=== PATIENT | male | born 1940 | race African-American/Black ===

== ENCOUNTER 2017-07-20 11:38 | Inpatient (IN) | payer MEDICARE, BC ==
[~2017-07-20] VITALS: Ht 171.4 cm; Wt 79.8 kg
[~2017-07-20 11:38] MED LIST: AMLO10TA80 PO; GLIPIZIDE PO; METF500T4 PO; METO-385 PO; VALS320T15 PO
[2017-07-20 15:27] LABS: BG BASE EXCESS 0.5 mmol/L (-2.0-2.0); BG CARBOXYHEMOGLOBIN 0.6 % (0.5-1.5); BG DEOXYHEMOGLOBIN 13.8 % (0.0-5.0); BG FRACTION INSPIRED OXYGEN 28; BG HCO3 ACT 24.1 mmol/L (22.0-26.0); BG METHEMOGLOBIN 0.3 % (0.0-1.5); BG OXYGEN SATURATION 86.1 % (92.0-98.5); BG OXYHEMOGLOBIN 85.3 % (94.0-97.0); BG PCO2 35.5 mmHg (35.0-45.0); BG PO2 52.1 mmHg (75.0-100.0); BG SAMPLE SITE RIGHT FEMORAL; BG TOTAL HEMOGLOBIN 12.8 g/dL (12.0-18.0); BG VENT MODE NASAL CANNULA
[2017-07-20 15:33] LABS: HEMATOCRIT. 36.9 % (42.0-52.0); HEMOGLOBIN. 12.2 g/dL (14.0-18.0); MEAN CORPUSCULAR HEMOGLOBIN 29.4 pg (28.0-32.0); MEAN PLATELET VOLUME 8.1 fl (7.4-10.4); PLATELET 331 x1000/uL (130-400); RED BLOOD CELL COUNT 4.15 mill/uL (4.7-6.1); RED CELL DISTRIBUTION WIDTH 15.6 % (11.6-14.6)
[2017-07-20 15:43] LABS: CHLORIDE 108 mEq/L (98-107)
[2017-07-20] MEDS ORDERED: LEVOFLOXACIN 750MG PREMIX 150 ML IV ONE (16:00)
[2017-07-20 16:08] LABS: INR 1.1; PROTHROMBIN TIME 11.1 sec (9.4-11.6)
[2017-07-20] MEDS ORDERED: SODIUM CHLORIDE 0.9% 1,000 ML IV ONE (16:49)
[2017-07-20 17:30] LABS: PLATELET ESTIMATE NORMAL
[2017-07-20 18:39] VITALS: BP 155/100
[2017-07-20] MEDS ORDERED: INFLUENZA VIRUS VACCINE 0.5ML SYR IM ONE (18:39)
[2017-07-20] MEDS ORDERED: PNEUMOCOCCAL 23-VAL P-SAC VAC 0.5 ML IM ONE (18:39)
[2017-07-20 18:47] VITALS: BP 155/100
[2017-07-20] MEDS ORDERED: NEBI20TA2 PO (18:50)
[2017-07-20] MEDS ORDERED: DOCUSATE SODIUM 100MG CAPSULE PO PRN (19:00)
[2017-07-20] MEDS ORDERED: ONDANSETRON HCL 4MG/2ML VIAL IV PRN (19:00)
[2017-07-20] MEDS ORDERED: GUAIFENESIN 200MG/10ML SUGAR FREE UDC PO PRN (19:00)
[2017-07-20] MEDS ORDERED: MORPHINE SULFATE 4 MG/ML CPJ (NOT FOR IM USE) IV PRN (19:00)
[2017-07-20] MEDS ORDERED: ACETAMINOPHEN 325MG TABLET PO PRN (19:00)
[2017-07-20 20:00] VITALS: BP 91/69
[2017-07-20] MEDS ORDERED: DEXTROSE 50% WATER 50ML SYRINGE IV PRN (20:00)
[2017-07-20] MEDS ORDERED: PIPERACILLIN/TAZ 3.375G PREMIX 50 ML IV SCH (20:00)
[2017-07-20] MEDS: FUROSEMIDE 40MG/4ML VIAL IV SCH (20:45)
[2017-07-20] MEDS: METOPROLOL TARTRATE 25MG TABLET PO SCH (20:46)
[2017-07-20] MEDS: ENOXAPARIN 40MG/0.4ML SYR SUBCUT SCH (20:47)
[2017-07-20] MEDS: BLOOD SUGAR DIAGNOSTIC STRIP TEST SCH (20:50)
[2017-07-20] MEDS: INSULIN LISPRO 100 UNITS/ML SUBCUT SCH (21:21)
[2017-07-20 22:00] VITALS: BP 120/100
[2017-07-20] MEDS: CLONIDINE 0.1MG TABLET PO PRN (22:10)
[2017-07-20] MEDS: PIPERACILLIN/TAZ 3.375G PREMIX 50 ML IV SCH (23:54)
[2017-07-21] VITALS (15 sets, daily range): BP systolic 131–177; BP diastolic 77–105
[2017-07-21 00:13] LABS: CREATINE KINASE MB FRACTION 1.7 ng/mL (0.5-3.6)
[2017-07-21] MEDS: PIPERACILLIN/TAZ 3.375G PREMIX 50 ML IV SCH ×3 (05:34→21:16)
[2017-07-21 06:36] LABS: BASOPHILS % 0.3 % (0.0-2.0); EOSINOPHILS % 0.4 % (0.0-5.0); HEMATOCRIT. 34.7 % (42.0-52.0); HEMOGLOBIN. 11.4 g/dL (14.0-18.0); LYMPHOCYTES % 7.2 % (20.0-50.0); MEAN CORPUSCULAR HEMOGLOBIN 29.2 pg (28.0-32.0); MEAN CORPUSCULAR VOLUME 89.2 fL (80.0-94.0); MEAN PLATELET VOLUME 7.5 fl (7.4-10.4); MONOCYTES % 11.2 % (2.0-8.0); NEUTROPHILS % 80.9 % (40.0-76.0); PLATELET 291 x1000/uL (130-400); RED BLOOD CELL COUNT 3.89 mill/uL (4.7-6.1); RED CELL DISTRIBUTION WIDTH 15.6 % (11.6-14.6)
[2017-07-21 07:17] LABS: CHLORIDE 108 mEq/L (98-107)
[2017-07-21 07:24] LABS: CREATINE KINASE 129 IU/L (39-308); CREATINE KINASE MB FRACTION 1.7 ng/mL (0.5-3.6); HDL CHOLESTEROL 45 mg/dL (40-59); LDL CHOLESTEROL 81 mg/dL (5-100)
[2017-07-21] MEDS: BLOOD SUGAR DIAGNOSTIC STRIP TEST SCH ×4 (07:30→20:30)
[2017-07-21] MEDS: INSULIN LISPRO 100 UNITS/ML SUBCUT SCH ×4 (07:50→20:40)
[2017-07-21] MEDS: ASPIRIN 81MG EC TABLET PO SCH (09:03)
[2017-07-21] MEDS: FUROSEMIDE 40MG/4ML VIAL IV SCH (09:03)
[2017-07-21] MEDS: AMLODIPINE 10MG TABLET PO SCH (09:03)
[2017-07-21] MEDS: METOPROLOL TARTRATE 25MG TABLET PO SCH ×2 (09:18→20:32)
[2017-07-21 15:07] LABS: BG BASE EXCESS 0.3 mmol/L (-2.0-2.0); BG HCO3 ACT 24.6 mmol/L (22.0-26.0); BG METHEMOGLOBIN 0.1 % (0.0-1.5); BG OXYHEMOGLOBIN 88.9 % (94.0-97.0); BG PCO2 38.3 mmHg (35.0-45.0); BG PH 7.425 (7.350-7.450); BG PO2 58.8 mmHg (75.0-100.0); BG SAMPLE SITE RIGHT RADIAL; BG TOTAL HEMOGLOBIN 11.8 g/dL (12.0-18.0); BG VENT MODE MASK - VENTI
[2017-07-21] MEDS: IPRATROPIUM/ALBUTEROL 0.5-3(2.5)MG/3ML NEB HHN SCH ×2 (15:18→20:10)
[2017-07-21] MEDS: GUAIFENESIN 600MG ER TABLET PO SCH (20:32)
[2017-07-21] MEDS: ENOXAPARIN 40MG/0.4ML SYR SUBCUT SCH (20:33)
[2017-07-22] VITALS (12 sets, daily range): BP systolic 92–169; BP diastolic 47–102
[2017-07-22] MEDS: IPRATROPIUM/ALBUTEROL 0.5-3(2.5)MG/3ML NEB HHN SCH ×6 (01:00→20:50)
[2017-07-22] MEDS: PIPERACILLIN/TAZ 3.375G PREMIX 50 ML IV SCH ×3 (05:16→21:45)
[2017-07-22] MEDS: BLOOD SUGAR DIAGNOSTIC STRIP TEST SCH ×4 (07:30→21:18)
[2017-07-22 08:19] LABS: HEMOGLOBIN. 10.5 g/dL (14.0-18.0); MEAN CORPUSCULAR HEMOGLOBIN 29.3 pg (28.0-32.0); MEAN CORPUSCULAR VOLUME 88.9 fL (80.0-94.0); MEAN PLATELET VOLUME 7.6 fl (7.4-10.4); PLATELET 287 x1000/uL (130-400); RED CELL DISTRIBUTION WIDTH 15.5 % (11.6-14.6)
[2017-07-22 08:22] LABS: CHLORIDE 106 mEq/L (98-107)
[2017-07-22] MEDS: GUAIFENESIN 600MG ER TABLET PO SCH (09:06)
[2017-07-22] MEDS: FUROSEMIDE 40MG/4ML VIAL IV SCH (09:06)
[2017-07-22] MEDS: METOPROLOL TARTRATE 25MG TABLET PO SCH ×2 (09:07→21:45)
[2017-07-22] MEDS: AMLODIPINE 10MG TABLET PO SCH (09:07)
[2017-07-22] MEDS: ASPIRIN 81MG EC TABLET PO SCH (09:07)
[2017-07-22] MEDS: INSULIN LISPRO 100 UNITS/ML SUBCUT SCH ×4 (09:13→21:42)
[2017-07-22] MEDS ORDERED: POTASSIUM CHLORIDE 20MEQ TABLET SR PO SCH (12:00)
[2017-07-22 12:13] LABS: PLATELET ESTIMATE NORMAL
[2017-07-22] MEDS ORDERED: REGADENOSON 0.4 MG/5 ML IV ONE (12:45)
[2017-07-22] MEDS: ACETYLCYSTEINE 100MG/ML 10% VIAL 4ML INH SCH (15:17)
[2017-07-22] MEDS: ENOXAPARIN 40MG/0.4ML SYR SUBCUT SCH (21:43)
[2017-07-22] MEDS: CLONIDINE 0.1MG TABLET PO PRN (22:26)
[2017-07-23] VITALS (12 sets, daily range): BP systolic 139–181; BP diastolic 59–101
[2017-07-23] MEDS: ACETYLCYSTEINE 100MG/ML 10% VIAL 4ML INH SCH ×3 (00:43→17:19)
[2017-07-23] MEDS: IPRATROPIUM/ALBUTEROL 0.5-3(2.5)MG/3ML NEB HHN SCH ×6 (00:43→21:23)
[2017-07-23] MEDS: PIPERACILLIN/TAZ 3.375G PREMIX 50 ML IV SCH ×3 (05:49→21:47)
[2017-07-23 06:11] LABS: CHLORIDE 107 mEq/L (98-107)
[2017-07-23] MEDS: CLONIDINE 0.1MG TABLET PO PRN (06:47)
[2017-07-23] MEDS: BLOOD SUGAR DIAGNOSTIC STRIP TEST SCH ×4 (06:47→21:48)
[2017-07-23] MEDS: FUROSEMIDE 40MG/4ML VIAL IV SCH (08:14)
[2017-07-23] MEDS: ASPIRIN 81MG EC TABLET PO SCH (08:15)
[2017-07-23] MEDS: METOPROLOL TARTRATE 25MG TABLET PO SCH ×2 (08:15→21:47)
[2017-07-23] MEDS: AMLODIPINE 10MG TABLET PO SCH (08:15)
[2017-07-23] MEDS: INSULIN LISPRO 100 UNITS/ML SUBCUT SCH ×4 (08:16→21:57)
[2017-07-23] MEDS ORDERED: POTASSIUM CHLORIDE 20MEQ TABLET SR PO NR (08:30)
[2017-07-23] MEDS ORDERED: REGADENOSON 0.4 MG/5 ML IV ONE (14:00)
[2017-07-23] MEDS: ENOXAPARIN 40MG/0.4ML SYR SUBCUT SCH (21:46)
[2017-07-24] VITALS (11 sets, daily range): BP systolic 146–175; BP diastolic 64–98
[2017-07-24] MEDS: IPRATROPIUM/ALBUTEROL 0.5-3(2.5)MG/3ML NEB HHN SCH ×7 (00:48→20:18)
[2017-07-24] MEDS: ACETYLCYSTEINE 100MG/ML 10% VIAL 4ML INH SCH ×3 (00:49→09:10)
[2017-07-24] MEDS: PIPERACILLIN/TAZ 3.375G PREMIX 50 ML IV SCH ×3 (05:33→21:06)
[2017-07-24 07:21] LABS: HEMATOCRIT. 31.6 % (42.0-52.0); HEMOGLOBIN. 10.2 g/dL (14.0-18.0); MEAN CORPUSCULAR HEMOGLOBIN 28.8 pg (28.0-32.0); MEAN CORPUSCULAR VOLUME 89.1 fL (80.0-94.0); MEAN PLATELET VOLUME 7.3 fl (7.4-10.4); PLATELET 327 x1000/uL (130-400); RED BLOOD CELL COUNT 3.55 mill/uL (4.7-6.1); RED CELL DISTRIBUTION WIDTH 15.4 % (11.6-14.6)
[2017-07-24] MEDS: BLOOD SUGAR DIAGNOSTIC STRIP TEST SCH ×4 (07:30→21:06)
[2017-07-24 07:39] LABS: CHLORIDE 106 mEq/L (98-107)
[2017-07-24] MEDS: FUROSEMIDE 40MG/4ML VIAL IV SCH (08:47)
[2017-07-24] MEDS: METOPROLOL TARTRATE 25MG TABLET PO SCH ×2 (08:47→21:06)
[2017-07-24] MEDS: ASPIRIN 81MG EC TABLET PO SCH (08:49)
[2017-07-24] MEDS: AMLODIPINE 10MG TABLET PO SCH (08:49)
[2017-07-24] MEDS: POTASSIUM CHLORIDE 20MEQ TABLET SR PO SCH (08:49)
[2017-07-24] MEDS: INSULIN LISPRO 100 UNITS/ML SUBCUT SCH ×4 (08:53→21:00)
[2017-07-24] MEDS ORDERED: REGADENOSON 0.4 MG/5 ML IV ONE (12:19)
[2017-07-24] MEDS ORDERED: LOSARTAN POTASSIUM 50 MG TABLET PO SCH (13:15)
[2017-07-24 13:49] LABS: PLATELET ESTIMATE NORMAL
[2017-07-24] MEDS ORDERED: VERAPAMIL HCL 2.5 MG/1 ML 2ML VIAL IV NR (14:15)
[2017-07-24] MEDS: TAMSULOSIN HCL 0.4MG SR CAPSULE PO SCH ×2 (14:19→16:51)
[2017-07-24] MEDS: ENOXAPARIN 80MG/0.8ML SYR SUBCUT SCH (16:31)
[2017-07-24] MEDS: DILTIAZEM HCL 60MG TABLET PO SCH (16:31)
[2017-07-24] MEDS ORDERED: TAMSULOSIN HCL 0.4MG SR CAPSULE PO NR (16:45)
[2017-07-24] MEDS ORDERED: AMLODIPINE 5MG TABLET PO SCH (21:00)
[2017-07-24] MEDS: LOSARTAN POTASSIUM 50 MG TABLET PO SCH (21:06)
[2017-07-25] VITALS (12 sets, daily range): BP systolic 143–161; BP diastolic 68–86
[2017-07-25] MEDS: ACETYLCYSTEINE 100MG/ML 10% VIAL 4ML INH SCH ×4 (00:04→12:54)
[2017-07-25] MEDS: IPRATROPIUM/ALBUTEROL 0.5-3(2.5)MG/3ML NEB HHN SCH ×4 (00:04→12:54)
[2017-07-25] MEDS: DILTIAZEM HCL 60MG TABLET PO SCH ×3 (02:07→18:20)
[2017-07-25] MEDS: ENOXAPARIN 80MG/0.8ML SYR SUBCUT SCH ×2 (05:24→18:16)
[2017-07-25] MEDS: PIPERACILLIN/TAZ 3.375G PREMIX 50 ML IV SCH ×3 (05:24→21:16)
[2017-07-25] MEDS: BLOOD SUGAR DIAGNOSTIC STRIP TEST SCH ×4 (07:52→21:16)
[2017-07-25 07:57] LABS: HEMATOCRIT. 29.2 % (42.0-52.0); HEMOGLOBIN. 9.7 g/dL (14.0-18.0); MEAN CORPUSCULAR HEMOGLOBIN 29.5 pg (28.0-32.0); MEAN CORPUSCULAR VOLUME 88.7 fL (80.0-94.0); MEAN PLATELET VOLUME 7.4 fl (7.4-10.4); PLATELET 333 x1000/uL (130-400); RED BLOOD CELL COUNT 3.29 mill/uL (4.7-6.1); RED CELL DISTRIBUTION WIDTH 15.2 % (11.6-14.6)
[2017-07-25] MEDS: METOPROLOL TARTRATE 25MG TABLET PO SCH ×2 (08:15→21:16)
[2017-07-25] MEDS: LOSARTAN POTASSIUM 50 MG TABLET PO SCH ×2 (08:15→21:16)
[2017-07-25] MEDS: ASPIRIN 81MG EC TABLET PO SCH (08:15)
[2017-07-25] MEDS: FUROSEMIDE 40MG/4ML VIAL IV SCH (08:15)
[2017-07-25] MEDS: POTASSIUM CHLORIDE 20MEQ TABLET SR PO SCH (08:16)
[2017-07-25] MEDS: TAMSULOSIN HCL 0.4MG SR CAPSULE PO SCH (08:16)
[2017-07-25] MEDS: INSULIN LISPRO 100 UNITS/ML SUBCUT SCH ×4 (08:17→21:22)
[2017-07-25 09:26] LABS: PLATELET ESTIMATE NORMAL
[2017-07-25] MEDS ORDERED: POTASSIUM CHLORIDE 20MEQ TABLET SR PO SCH (14:00)
[2017-07-25] MEDS: IPRATROPIUM/ALBUTEROL 0.5-3(2.5)MG/3ML NEB HHN PRN (16:02)
[2017-07-26] VITALS (12 sets, daily range): BP systolic 122–169; BP diastolic 76–94
[2017-07-26] MEDS: IPRATROPIUM/ALBUTEROL 0.5-3(2.5)MG/3ML NEB HHN PRN ×4 (00:19→23:42)
[2017-07-26] MEDS: DILTIAZEM HCL 60MG TABLET PO SCH (02:11)
[2017-07-26] MEDS: ENOXAPARIN 80MG/0.8ML SYR SUBCUT SCH ×2 (05:44→18:00)
[2017-07-26] MEDS: PIPERACILLIN/TAZ 3.375G PREMIX 50 ML IV SCH ×3 (05:44→21:07)
[2017-07-26] MEDS: BLOOD SUGAR DIAGNOSTIC STRIP TEST SCH ×4 (07:30→21:04)
[2017-07-26 07:36] LABS: HEMATOCRIT. 30.8 % (42.0-52.0); HEMOGLOBIN. 10.2 g/dL (14.0-18.0); MEAN CORPUSCULAR HEMOGLOBIN 29.3 pg (28.0-32.0); MEAN CORPUSCULAR VOLUME 88.4 fL (80.0-94.0); MEAN PLATELET VOLUME 7.1 fl (7.4-10.4); PLATELET 384 x1000/uL (130-400); RED BLOOD CELL COUNT 3.49 mill/uL (4.7-6.1); RED CELL DISTRIBUTION WIDTH 15.5 % (11.6-14.6)
[2017-07-26] MEDS: INSULIN LISPRO 100 UNITS/ML SUBCUT SCH ×4 (08:00→21:07)
[2017-07-26] MEDS: ACETYLCYSTEINE 100MG/ML 10% VIAL 4ML INH SCH ×3 (08:15→23:42)
[2017-07-26 08:44] LABS: CHLORIDE 111 mEq/L (98-107)
[2017-07-26] MEDS: FUROSEMIDE 40MG/4ML VIAL IV SCH (09:58)
[2017-07-26] MEDS: POTASSIUM CHLORIDE 20MEQ TABLET SR PO SCH (09:58)
[2017-07-26] MEDS: METOPROLOL TARTRATE 25MG TABLET PO SCH ×2 (09:59→21:07)
[2017-07-26] MEDS: TAMSULOSIN HCL 0.4MG SR CAPSULE PO SCH (09:59)
[2017-07-26] MEDS: LOSARTAN POTASSIUM 50 MG TABLET PO SCH ×2 (09:59→21:09)
[2017-07-26] MEDS: ASPIRIN 81MG EC TABLET PO SCH (10:00)
[2017-07-26] MEDS: DILTIAZEM HCL 90MG TABLET PO SCH ×2 (14:48→22:42)
[2017-07-26 20:23] LABS: PLATELET ESTIMATE NORMAL
[2017-07-27] VITALS (12 sets, daily range): BP systolic 133–168; BP diastolic 44–85
[2017-07-27 06:02] LABS: HEMATOCRIT. 27.4 % (42.0-52.0); HEMOGLOBIN. 9.3 g/dL (14.0-18.0); MEAN CORPUSCULAR HEMOGLOBIN 29.9 pg (28.0-32.0); MEAN CORPUSCULAR VOLUME 88.4 fL (80.0-94.0); PLATELET 341 x1000/uL (130-400); RED CELL DISTRIBUTION WIDTH 15.5 % (11.6-14.6)
[2017-07-27] MEDS: DILTIAZEM HCL 90MG TABLET PO SCH ×3 (06:35→21:24)
[2017-07-27] MEDS: PIPERACILLIN/TAZ 3.375G PREMIX 50 ML IV SCH ×3 (06:35→21:23)
[2017-07-27] MEDS: INSULIN LISPRO 100 UNITS/ML SUBCUT SCH ×4 (08:00→21:36)
[2017-07-27] MEDS: IPRATROPIUM/ALBUTEROL 0.5-3(2.5)MG/3ML NEB HHN PRN ×2 (08:01→15:12)
[2017-07-27] MEDS: ACETYLCYSTEINE 100MG/ML 10% VIAL 4ML INH SCH ×2 (08:01→15:12)
[2017-07-27] MEDS: BLOOD SUGAR DIAGNOSTIC STRIP TEST SCH ×4 (08:13→21:51)
[2017-07-27 09:26] LABS: PLATELET ESTIMATE NORMAL
[2017-07-27] MEDS: POTASSIUM CHLORIDE 20MEQ TABLET SR PO SCH (10:20)
[2017-07-27] MEDS: METOPROLOL TARTRATE 25MG TABLET PO SCH ×2 (10:21→21:24)
[2017-07-27] MEDS: TAMSULOSIN HCL 0.4MG SR CAPSULE PO SCH (10:21)
[2017-07-27] MEDS: LOSARTAN POTASSIUM 50 MG TABLET PO SCH ×2 (10:21→21:23)
[2017-07-27] MEDS: FUROSEMIDE 40MG/4ML VIAL IV SCH (10:22)
[2017-07-27] MEDS: ASPIRIN 81MG EC TABLET PO SCH (10:22)
[2017-07-28] VITALS (23 sets, daily range): BP systolic 131–187; BP diastolic 58–106
[2017-07-28] MEDS: DILTIAZEM HCL 90MG TABLET PO SCH ×3 (06:09→22:25)
[2017-07-28 07:38] LABS: HEMATOCRIT. 29.8 % (42.0-52.0); HEMOGLOBIN. 9.8 g/dL (14.0-18.0); MEAN CORPUSCULAR HEMOGLOBIN 28.9 pg (28.0-32.0); MEAN CORPUSCULAR VOLUME 88.4 fL (80.0-94.0); MEAN PLATELET VOLUME 7.1 fl (7.4-10.4); PLATELET 398 x1000/uL (130-400); RED BLOOD CELL COUNT 3.38 mill/uL (4.7-6.1); RED CELL DISTRIBUTION WIDTH 15.2 % (11.6-14.6)
[2017-07-28] MEDS: BLOOD SUGAR DIAGNOSTIC STRIP TEST SCH ×4 (07:53→21:00)
[2017-07-28] MEDS: INSULIN LISPRO 100 UNITS/ML SUBCUT SCH ×4 (08:22→22:23)
[2017-07-28] MEDS: POTASSIUM CHLORIDE 20MEQ TABLET SR PO SCH (08:22)
[2017-07-28] MEDS: FUROSEMIDE 40MG/4ML VIAL IV SCH (08:22)
[2017-07-28] MEDS: ASPIRIN 81MG EC TABLET PO SCH (08:22)
[2017-07-28] MEDS: LOSARTAN POTASSIUM 50 MG TABLET PO SCH ×2 (08:22→22:11)
[2017-07-28] MEDS: TAMSULOSIN HCL 0.4MG SR CAPSULE PO SCH (08:22)
[2017-07-28] MEDS: METOPROLOL TARTRATE 25MG TABLET PO SCH ×2 (08:23→22:10)
[2017-07-28 18:05] LABS: PLATELET ESTIMATE NORMAL
[2017-07-29] VITALS (8 sets, daily range): BP systolic 132–174; BP diastolic 67–83
[2017-07-29] MEDS: DILTIAZEM HCL 90MG TABLET PO SCH ×2 (06:36→13:01)
[2017-07-29] MEDS: CLONIDINE 0.1MG TABLET PO PRN (06:40)
[2017-07-29] MEDS: BLOOD SUGAR DIAGNOSTIC STRIP TEST SCH ×3 (07:03→17:28)
[2017-07-29] MEDS: INSULIN LISPRO 100 UNITS/ML SUBCUT SCH ×3 (07:57→17:28)
[2017-07-29] MEDS: FUROSEMIDE 40MG/4ML VIAL IV SCH (08:31)
[2017-07-29] MEDS: ASPIRIN 81MG EC TABLET PO SCH (08:31)
[2017-07-29] MEDS: METOPROLOL TARTRATE 25MG TABLET PO SCH (08:31)
[2017-07-29] MEDS: POTASSIUM CHLORIDE 20MEQ TABLET SR PO SCH (08:31)
[2017-07-29] MEDS: LOSARTAN POTASSIUM 50 MG TABLET PO SCH (08:31)
[2017-07-29] MEDS: TAMSULOSIN HCL 0.4MG SR CAPSULE PO SCH (08:32)
== END 2017-07-29 20:30 | disposition home or self-care (01) | DRG 871 ==
LOC: ER 12:00 → 5EST 16:03 → EDBEDREQ 16:05 → ENRESERV 16:13
PROVIDERS: ADMIT Hospitalist; ATTEND Hospitalist
PROC: 5A09357 Assistance with Respiratory Ventilation, Less than 24 Consecutive Hours, Continuous Positive Airway Pressure (ICD-10-PCS; principal; 2017-07-20)
PROC: 5A09357 Assistance with Respiratory Ventilation, Less than 24 Consecutive Hours, Continuous Positive Airway Pressure (ICD-10-PCS; 2017-07-22)
DX: A41.9 Sepsis, unspecified organism (principal); I50.23 Acute on chronic systolic (congestive) heart failure; J96.01 Acute respiratory failure with hypoxia; I21.4 Non-ST elevation (NSTEMI) myocardial infarction; J18.9 Pneumonia, unspecified organism; N17.9 Acute kidney failure, unspecified; I48.0 Paroxysmal atrial fibrillation; I11.0 Hypertensive heart disease with heart failure; D64.9 Anemia, unspecified; E11.9 Type 2 diabetes mellitus without complications; E87.1 Hypo-osmolality and hyponatremia; I48.92 Unspecified atrial flutter; N40.1 Benign prostatic hyperplasia with lower urinary tract symptoms; R31.9 Hematuria, unspecified; R33.8 Other retention of urine; I34.0 Nonrheumatic mitral (valve) insufficiency; E87.6 Hypokalemia; F03.90 Unspecified dementia, unspecified severity, without behavioral disturbance, psychotic disturbance, mood disturbance, and anxiety; Z87.891 Personal history of nicotine dependence; Z93.4 Other artificial openings of gastrointestinal tract status; Z79.899 Other long term (current) drug therapy; Z79.84 Long term (current) use of oral hypoglycemic drugs
CPT/HCPCS: 36415; 36600; 71045; 71275; 78452; 80048; 80053; 80061; 82375; 82550; 82553; 82805; 82962; 83735; 83880; 84443; 84484; 85025; 85379; 85610; 93005; 93017; 93306; 93970; 94640; 94660; 97116; 97162; A9500; J1650; J1815; J1940; J1956; J2543; J2785; J3490; J7030; J7050; J7608; J7620; A4315

== ENCOUNTER 2017-08-06 10:45 | Inpatient (IN) | payer MEDICARE, BC ==
[~2017-08-06] VITALS: Ht 170.2 cm; Wt 75.3 kg
[~2017-08-06 10:45] MED LIST changes: +NEBI20TA2 PO
[2017-08-06 11:21] LABS: BG BASE EXCESS -4.7 mmol/L (-2.0-2.0); BG CARBOXYHEMOGLOBIN 0.1 % (0.5-1.5); BG DEOXYHEMOGLOBIN 12.8 % (0.0-5.0); BG FRACTION INSPIRED OXYGEN 100; BG HCO3 ACT 21.4 mmol/L (22.0-26.0); BG METHEMOGLOBIN 0.1 % (0.0-1.5); BG OXYGEN SATURATION 87.2 % (92.0-98.5); BG PCO2 43.7 mmHg (35.0-45.0); BG PH 7.308 (7.350-7.450); BG SAMPLE SITE RIGHT BRACHIAL; BG TOTAL HEMOGLOBIN 11.5 g/dL (12.0-18.0); BG VENT MODE MASK - NRB
[2017-08-06 11:36] LABS: HEMATOCRIT. 31.5 % (42.0-52.0); HEMOGLOBIN. 10.5 g/dL (14.0-18.0); MEAN CORPUSCULAR HEMOGLOBIN 29.5 pg (28.0-32.0); MEAN CORPUSCULAR VOLUME 88.7 fL (80.0-94.0); MEAN PLATELET VOLUME 6.8 fl (7.4-10.4); PLATELET 550 x1000/uL (130-400); RED BLOOD CELL COUNT 3.56 mill/uL (4.7-6.1); RED CELL DISTRIBUTION WIDTH 15.9 % (11.6-14.6)
[2017-08-06 11:43] LABS: INR 1.1
[2017-08-06 11:47] LABS: CHLORIDE 105 mEq/L (98-107)
[2017-08-06] MEDS ORDERED: ASPIRIN 81MG TABLET PO ONE (12:15)
[2017-08-06] MEDS ORDERED: FUROSEMIDE 40MG/4ML VIAL IV ONE (12:15)
[2017-08-06] MEDS ORDERED: NITROGLYCERIN 0.4MG TABLET SL SL PRN (12:15)
[2017-08-06] MEDS ORDERED: NITROGLYCERIN OINT 1GM/INCH UDPKT TD ONE (12:15)
[2017-08-06 12:19] LABS: PLATELET ESTIMATE INCREASED
[2017-08-06] MEDS ORDERED: IPRATROPIUM/ALBUTEROL 0.5-3(2.5)MG/3ML NEB HHN PRN (13:30)
[2017-08-06] MEDS ORDERED: IPRATROPIUM/ALBUTEROL 0.5-3(2.5)MG/3ML NEB INH PRN (13:45)
[2017-08-06] MEDS ORDERED: MORPHINE SULFATE 2 MG/ML CPJ (NOT FOR IM USE) IV PRN (13:45)
[2017-08-06] MEDS ORDERED: ONDANSETRON HCL 4MG/2ML VIAL IV PRN (13:45)
[2017-08-06] MEDS: FUROSEMIDE 40MG/4ML VIAL IV SCH (13:45)
[2017-08-06] MEDS ORDERED: LEVOFLOXACIN 750MG PREMIX 150 ML IV SCH (13:45)
[2017-08-06] MEDS ORDERED: HYDROCODONE/ACETAMINOPHEN 5/325MG TABLET PO PRN (13:45)
[2017-08-06] MEDS: IPRATROPIUM/ALBUTEROL 0.5-3(2.5)MG/3ML NEB HHN SCH ×2 (15:22→20:38)
[2017-08-06] MEDS ORDERED: CLONIDINE 0.2MG TABLET PO PRN (15:45)
[2017-08-06 16:00] VITALS: BP 137/85
[2017-08-06] MEDS ORDERED: DEXTROSE 50% WATER 50ML SYRINGE IV PRN (16:45)
[2017-08-06] MEDS: BLOOD SUGAR DIAGNOSTIC STRIP TEST SCH ×2 (17:20→21:25)
[2017-08-06 18:00] VITALS: BP 127/66
[2017-08-06] MEDS: PIPERACILLIN/TAZ 3.375G PREMIX 50 ML IV SCH ×2 (18:30→23:38)
[2017-08-06] MEDS: ENOXAPARIN 40MG/0.4ML SYR SUBCUT SCH (18:31)
[2017-08-06] MEDS: TAMSULOSIN HCL 0.4MG SR CAPSULE PO SCH (18:32)
[2017-08-06] MEDS: FUROSEMIDE 40MG/4ML VIAL IVP SCH (18:34)
[2017-08-06] MEDS: INSULIN LISPRO 100 UNITS/ML SUBCUT SCH ×2 (18:34→21:00)
[2017-08-06 20:00] VITALS: BP 126/63
[2017-08-06 22:00] VITALS: BP 153/74
[2017-08-06 23:32] LABS: CLARITY URINE CLOUDY (CLEAR); COLOR URINE YELLOW (YELLOW); KETONES URINE NEGATIVE (NEGATIVE); LEUKOCYTE ESTERASE URINE 2+ (NEGATIVE); NITRITE URINE NEGATIVE (NEGATIVE); OCCULT BLOOD URINE TRACE (NEGATIVE); PROTEIN URINE 1+ (NEGATIVE); SPECIFIC GRAVITY URINE 1.015 (1.005-1.030); UROBILINOGEN URINE 0.2 E.U./dL (0.2-1.0)
[2017-08-06 23:52] LABS: *AMPHETAMINES SCREEN URINE NEGATIVE (NEGATIVE); *BARBITURATES SCREEN URINE NEGATIVE (NEGATIVE); *BENZODIAZEPINES SCREEN URINE NEGATIVE (NEGATIVE); *COCAINE SCREEN URINE NEGATIVE (NEGATIVE); CANNABINOID URINE SCREEN NEGATIVE (NEGATIVE); METHADONE URINE SCREEN NEGATIVE (NEGATIVE); OPIATES URINE SCREEN NEGATIVE (NEGATIVE); PHENCYCLIDINE URINE SCREEN NEGATIVE (NEGATIVE)
[2017-08-07] VITALS (14 sets, daily range): BP systolic 129–154; BP diastolic 56–93
[2017-08-07] MEDS: IPRATROPIUM/ALBUTEROL 0.5-3(2.5)MG/3ML NEB HHN SCH ×7 (00:20→19:59)
[2017-08-07 07:14] LABS: HEMATOCRIT. 27.6 % (42.0-52.0); MEAN CORPUSCULAR HEMOGLOBIN 28.8 pg (28.0-32.0); MEAN CORPUSCULAR VOLUME 88.3 fL (80.0-94.0); MEAN PLATELET VOLUME 6.8 fl (7.4-10.4); PLATELET 403 x1000/uL (130-400); RED BLOOD CELL COUNT 3.13 mill/uL (4.7-6.1); RED CELL DISTRIBUTION WIDTH 16.3 % (11.6-14.6)
[2017-08-07] MEDS: INSULIN LISPRO 100 UNITS/ML SUBCUT SCH ×4 (07:27→21:12)
[2017-08-07] MEDS: BLOOD SUGAR DIAGNOSTIC STRIP TEST SCH ×4 (07:27→21:12)
[2017-08-07 07:41] LABS: CHLORIDE 108 mEq/L (98-107)
[2017-08-07 07:56] LABS: HDL CHOLESTEROL 40 mg/dL (40-59); LDL CHOLESTEROL 72 mg/dL (5-100)
[2017-08-07 08:02] LABS: BG BILEVEL POS AIRWAY PRESSURE 15/5; BG CARBOXYHEMOGLOBIN 0.3 % (0.5-1.5); BG DEOXYHEMOGLOBIN 1.9 % (0.0-5.0); BG FRACTION INSPIRED OXYGEN 65; BG METHEMOGLOBIN 0.1 % (0.0-1.5); BG OXYGEN SATURATION 98.1 % (92.0-98.5); BG OXYHEMOGLOBIN 97.7 % (94.0-97.0); BG PCO2 36.1 mmHg (35.0-45.0); BG PO2 116.8 mmHg (75.0-100.0); BG SAMPLE SITE RIGHT BRACHIAL; BG VENT MODE MASK - BIPAP
[2017-08-07] MEDS: TAMSULOSIN HCL 0.4MG SR CAPSULE PO SCH (08:23)
[2017-08-07] MEDS: ASPIRIN 81MG EC TABLET PO SCH (08:23)
[2017-08-07] MEDS: FUROSEMIDE 40MG/4ML VIAL IVP SCH (08:24)
[2017-08-07] MEDS: ENOXAPARIN 40MG/0.4ML SYR SUBCUT SCH (08:24)
[2017-08-07] MEDS: PIPERACILLIN/TAZ 3.375G PREMIX 50 ML IV SCH ×4 (08:24→23:47)
[2017-08-07] MEDS: FUROSEMIDE 40MG/4ML VIAL IV SCH (09:00)
[2017-08-07] MEDS ORDERED: CLONIDINE 0.2MG TABLET PO PRN (10:30)
[2017-08-07] MEDS: METOPROLOL TARTRATE 25MG TABLET PO SCH ×2 (11:05→21:09)
[2017-08-07] MEDS: LISINOPRIL 5MG TABLET PO SCH ×2 (11:06→21:08)
[2017-08-07 16:26] LABS: PLATELET ESTIMATE INCREASED
[2017-08-07] MEDS: VERAPAMIL HCL 2.5 MG/1 ML 2ML VIAL IV PRN ×2 (16:56→21:11)
[2017-08-07] MEDS: ATORVASTATIN CALCIUM 20MG TABLET PO SCH (21:07)
[2017-08-07] MEDS: AMLODIPINE 5MG TABLET PO SCH (21:08)
[2017-08-08] VITALS (15 sets, daily range): BP systolic 118–173; BP diastolic 50–89
[2017-08-08] MEDS: IPRATROPIUM/ALBUTEROL 0.5-3(2.5)MG/3ML NEB HHN SCH ×5 (05:06→20:40)
[2017-08-08] MEDS: PIPERACILLIN/TAZ 3.375G PREMIX 50 ML IV SCH ×4 (05:09→23:50)
[2017-08-08 06:09] LABS: HEMOGLOBIN. 8.5 g/dL (14.0-18.0); MEAN CORPUSCULAR HEMOGLOBIN 28.8 pg (28.0-32.0); MEAN CORPUSCULAR VOLUME 87.8 fL (80.0-94.0); MEAN PLATELET VOLUME 6.8 fl (7.4-10.4); PLATELET 395 x1000/uL (130-400); RED BLOOD CELL COUNT 2.96 mill/uL (4.7-6.1); RED CELL DISTRIBUTION WIDTH 15.9 % (11.6-14.6)
[2017-08-08] MEDS: BLOOD SUGAR DIAGNOSTIC STRIP TEST SCH ×4 (07:56→20:36)
[2017-08-08] MEDS: ENOXAPARIN 40MG/0.4ML SYR SUBCUT SCH (08:57)
[2017-08-08] MEDS: INSULIN LISPRO 100 UNITS/ML SUBCUT SCH ×4 (08:58→20:39)
[2017-08-08] MEDS: METOPROLOL TARTRATE 25MG TABLET PO SCH ×2 (08:58→20:34)
[2017-08-08] MEDS: LISINOPRIL 5MG TABLET PO SCH (08:59)
[2017-08-08] MEDS: ASPIRIN 81MG EC TABLET PO SCH (08:59)
[2017-08-08] MEDS: POTASSIUM CHLORIDE 20MEQ TABLET SR PO SCH (08:59)
[2017-08-08] MEDS: AMLODIPINE 5MG TABLET PO SCH ×2 (08:59→20:35)
[2017-08-08] MEDS: TAMSULOSIN HCL 0.4MG SR CAPSULE PO SCH (08:59)
[2017-08-08 10:33] LABS: PLATELET ESTIMATE NORMAL
[2017-08-08 11:14] LABS: CREATINE KINASE 146 IU/L (39-308)
[2017-08-08] MEDS: HYDRALAZINE HCL 25MG TABLET PO SCH ×2 (13:12→21:36)
[2017-08-08] MEDS: FUROSEMIDE 20MG TABLET PO SCH ×2 (13:12→20:34)
[2017-08-08] MEDS ORDERED: LEVOFLOXACIN 750MG PREMIX 150 ML IV SCH (15:00)
[2017-08-08] MEDS: ACETYLCYSTEINE 200MG/ML 20% VIAL 4ML PO SCH (17:09)
[2017-08-08] MEDS: CLONIDINE 0.1MG TABLET PO PRN (18:26)
[2017-08-08] MEDS: ATORVASTATIN CALCIUM 20MG TABLET PO SCH (20:35)
[2017-08-09] VITALS (15 sets, daily range): BP systolic 129–160; BP diastolic 64–95
[2017-08-09] MEDS: ACETYLCYSTEINE 200MG/ML 20% VIAL 4ML PO SCH ×2 (00:43→10:58)
[2017-08-09] MEDS: IPRATROPIUM/ALBUTEROL 0.5-3(2.5)MG/3ML NEB HHN SCH ×6 (00:43→19:54)
[2017-08-09] MEDS: VERAPAMIL HCL 2.5 MG/1 ML 2ML VIAL IV PRN (04:12)
[2017-08-09] MEDS: PIPERACILLIN/TAZ 3.375G PREMIX 50 ML IV SCH ×4 (05:32→23:23)
[2017-08-09] MEDS: HYDRALAZINE HCL 25MG TABLET PO SCH ×3 (05:38→21:31)
[2017-08-09 06:19] LABS: HEMATOCRIT. 26.2 % (42.0-52.0); HEMOGLOBIN. 8.8 g/dL (14.0-18.0); MEAN CORPUSCULAR HEMOGLOBIN 29.3 pg (28.0-32.0); MEAN CORPUSCULAR VOLUME 87.6 fL (80.0-94.0); PLATELET 378 x1000/uL (130-400); RED CELL DISTRIBUTION WIDTH 15.9 % (11.6-14.6)
[2017-08-09] MEDS: BLOOD SUGAR DIAGNOSTIC STRIP TEST SCH ×4 (07:34→20:49)
[2017-08-09] MEDS: POTASSIUM CHLORIDE 20MEQ TABLET SR PO SCH (07:35)
[2017-08-09] MEDS: METOPROLOL TARTRATE 25MG TABLET PO SCH (07:35)
[2017-08-09] MEDS: ASPIRIN 81MG EC TABLET PO SCH (07:36)
[2017-08-09] MEDS: ENOXAPARIN 40MG/0.4ML SYR SUBCUT SCH (07:36)
[2017-08-09] MEDS: TAMSULOSIN HCL 0.4MG SR CAPSULE PO SCH (07:36)
[2017-08-09] MEDS: FUROSEMIDE 20MG TABLET PO SCH (07:36)
[2017-08-09] MEDS: AMLODIPINE 5MG TABLET PO SCH ×2 (07:36→20:48)
[2017-08-09] MEDS: INSULIN LISPRO 100 UNITS/ML SUBCUT SCH ×4 (07:45→20:49)
[2017-08-09] MEDS ORDERED: AMIODARONE HCL 150 MG in DEXT 5% WATER 100 ML IV NR (11:00)
[2017-08-09 11:22] LABS: BG BASE EXCESS 1.6 mmol/L (-2.0-2.0); BG CARBOXYHEMOGLOBIN 0.2 % (0.5-1.5); BG FRACTION INSPIRED OXYGEN 40; BG HCO3 ACT 25.8 mmol/L (22.0-26.0); BG METHEMOGLOBIN 0.2 % (0.0-1.5); BG OXYGEN SATURATION 84.9 % (92.0-98.5); BG OXYHEMOGLOBIN 84.6 % (94.0-97.0); BG PCO2 38.9 mmHg (35.0-45.0); BG PO2 49.8 mmHg (75.0-100.0); BG SAMPLE SITE LEFT RADIAL; BG TOTAL HEMOGLOBIN 10.3 g/dL (12.0-18.0); BG VENT MODE MASK - VENTI
[2017-08-09] MEDS ORDERED: ENOXAPARIN 80MG/0.8ML SYR SUBCUT SCH (12:00)
[2017-08-09] MEDS: AMIODARONE HCL 900 MG in DEXT 5% WATER 500 ML IV SCH ×2 (12:13→18:20)
[2017-08-09] MEDS ORDERED: ENOXAPARIN 40MG/0.4ML SYR SUBCUT NR (13:15)
[2017-08-09 14:02] LABS: PLATELET ESTIMATE NORMAL
[2017-08-09] MEDS: ACETYLCYSTEINE 100MG/ML 10% VIAL 4ML INH SCH (16:00)
[2017-08-09] MEDS: FUROSEMIDE 40MG/4ML VIAL IVP SCH (18:30)
[2017-08-09] MEDS: ATORVASTATIN CALCIUM 20MG TABLET PO SCH (20:48)
[2017-08-09] MEDS: METOPROLOL TARTRATE 50MG TABLET PO SCH (20:48)
[2017-08-09] MEDS ORDERED: METOPROLOL TARTRATE 50MG TABLET PO SCH (21:00)
[2017-08-09] MEDS: NITROGLYCERIN OINT 1GM/INCH UDPKT TD SCH (21:31)
[2017-08-09] MEDS: CLONIDINE 0.1MG TABLET PO PRN (21:31)
[2017-08-10] VITALS (13 sets, daily range): BP systolic 135–166; BP diastolic 63–90
[2017-08-10] MEDS: IPRATROPIUM/ALBUTEROL 0.5-3(2.5)MG/3ML NEB HHN SCH ×6 (00:01→20:34)
[2017-08-10] MEDS: ACETYLCYSTEINE 100MG/ML 10% VIAL 4ML INH SCH ×3 (00:02→20:30)
[2017-08-10] MEDS: PIPERACILLIN/TAZ 3.375G PREMIX 50 ML IV SCH ×4 (05:45→23:38)
[2017-08-10] MEDS: NITROGLYCERIN OINT 1GM/INCH UDPKT TD SCH ×3 (05:46→22:21)
[2017-08-10] MEDS: HYDRALAZINE HCL 25MG TABLET PO SCH ×3 (05:46→22:21)
[2017-08-10 06:06] LABS: HEMOGLOBIN. 8.8 g/dL (14.0-18.0); MEAN CORPUSCULAR HEMOGLOBIN 28.7 pg (28.0-32.0); MEAN CORPUSCULAR VOLUME 88.1 fL (80.0-94.0); MEAN PLATELET VOLUME 6.9 fl (7.4-10.4); PLATELET 410 x1000/uL (130-400); RED BLOOD CELL COUNT 3.06 mill/uL (4.7-6.1); RED CELL DISTRIBUTION WIDTH 15.7 % (11.6-14.6)
[2017-08-10 06:51] LABS: CHLORIDE 106 mEq/L (98-107)
[2017-08-10] MEDS: BLOOD SUGAR DIAGNOSTIC STRIP TEST SCH ×4 (07:50→21:00)
[2017-08-10] MEDS: INSULIN LISPRO 100 UNITS/ML SUBCUT SCH ×4 (08:00→21:11)
[2017-08-10] MEDS: FUROSEMIDE 40MG/4ML VIAL IVP SCH (09:18)
[2017-08-10] MEDS: POTASSIUM CHLORIDE 20MEQ TABLET SR PO SCH (09:19)
[2017-08-10] MEDS: METOPROLOL TARTRATE 50MG TABLET PO SCH ×2 (09:19→20:59)
[2017-08-10] MEDS: AMLODIPINE 5MG TABLET PO SCH ×2 (09:19→20:59)
[2017-08-10] MEDS: TAMSULOSIN HCL 0.4MG SR CAPSULE PO SCH (09:19)
[2017-08-10] MEDS: ASPIRIN 81MG EC TABLET PO SCH (09:19)
[2017-08-10] MEDS: ENOXAPARIN 80MG/0.8ML SYR SUBCUT SCH (09:20)
[2017-08-10 14:18] LABS: PLATELET ESTIMATE NORMAL
[2017-08-10] MEDS: DOXYCYCLINE HYCLATE 100MG CAPSULE PO SCH ×2 (18:25→22:23)
[2017-08-10] MEDS: CEFEPIME 1,000 MG in DEXTROSE 5% WATER 50 ML IV SCH (18:25)
[2017-08-10] MEDS ORDERED: AMIODARONE HCL 200 MG TABLET PO SCH (21:00)
[2017-08-10] MEDS: ATORVASTATIN CALCIUM 20MG TABLET PO SCH (21:06)
[2017-08-10] MEDS: AMIODARONE HCL 200 MG TABLET PO SCH (21:07)
[2017-08-11] VITALS (12 sets, daily range): BP systolic 136–157; BP diastolic 66–89
[2017-08-11] MEDS: IPRATROPIUM/ALBUTEROL 0.5-3(2.5)MG/3ML NEB HHN SCH ×7 (00:11→23:55)
[2017-08-11] MEDS: VERAPAMIL HCL 2.5 MG/1 ML 2ML VIAL IV PRN ×2 (02:47→15:56)
[2017-08-11] MEDS ORDERED: MORPHINE SULFATE 4 MG/ML CPJ (NOT FOR IM USE) IV PRN (04:03)
[2017-08-11] MEDS: HYDRALAZINE HCL 25MG TABLET PO SCH ×3 (05:47→21:11)
[2017-08-11] MEDS: NITROGLYCERIN OINT 1GM/INCH UDPKT TD SCH ×3 (05:47→21:10)
[2017-08-11] MEDS: PIPERACILLIN/TAZ 3.375G PREMIX 50 ML IV SCH ×4 (05:48→23:52)
[2017-08-11 07:10] LABS: HEMATOCRIT. 25.1 % (42.0-52.0); HEMOGLOBIN. 8.4 g/dL (14.0-18.0); MEAN CORPUSCULAR HEMOGLOBIN 29.2 pg (28.0-32.0); MEAN CORPUSCULAR VOLUME 87.3 fL (80.0-94.0); MEAN PLATELET VOLUME 6.9 fl (7.4-10.4); PLATELET 393 x1000/uL (130-400); RED BLOOD CELL COUNT 2.87 mill/uL (4.7-6.1); RED CELL DISTRIBUTION WIDTH 15.8 % (11.6-14.6)
[2017-08-11 07:58] LABS: CHLORIDE 105 mEq/L (98-107)
[2017-08-11] MEDS: ACETYLCYSTEINE 100MG/ML 10% VIAL 4ML INH SCH ×4 (08:13→23:54)
[2017-08-11] MEDS: BLOOD SUGAR DIAGNOSTIC STRIP TEST SCH ×4 (08:24→21:12)
[2017-08-11] MEDS ORDERED: FUROSEMIDE 20MG TABLET PO SCH (09:00)
[2017-08-11] MEDS: AMIODARONE HCL 200 MG TABLET PO SCH ×2 (09:21→21:11)
[2017-08-11] MEDS: DOXYCYCLINE HYCLATE 100MG CAPSULE PO SCH ×2 (09:21→21:11)
[2017-08-11] MEDS: TAMSULOSIN HCL 0.4MG SR CAPSULE PO SCH (09:21)
[2017-08-11] MEDS: METOPROLOL TARTRATE 50MG TABLET PO SCH (09:21)
[2017-08-11] MEDS: AMLODIPINE 5MG TABLET PO SCH ×2 (09:22→21:10)
[2017-08-11] MEDS: ASPIRIN 81MG EC TABLET PO SCH (09:22)
[2017-08-11] MEDS: INSULIN LISPRO 100 UNITS/ML SUBCUT SCH ×4 (09:26→21:24)
[2017-08-11] MEDS: POTASSIUM CHLORIDE 20MEQ TABLET SR PO SCH (09:33)
[2017-08-11] MEDS: ENOXAPARIN 80MG/0.8ML SYR SUBCUT SCH (09:39)
[2017-08-11 12:43] LABS: BG BASE EXCESS 0.7 mmol/L (-2.0-2.0); BG BILEVEL POS AIRWAY PRESSURE 15/5; BG CARBOXYHEMOGLOBIN 0.3 % (0.5-1.5); BG DEOXYHEMOGLOBIN 4.5 % (0.0-5.0); BG FRACTION INSPIRED OXYGEN 65; BG HCO3 ACT 24.5 mmol/L (22.0-26.0); BG METHEMOGLOBIN 0.2 % (0.0-1.5); BG OXYGEN SATURATION 95.5 % (92.0-98.5); BG PCO2 36.3 mmHg (35.0-45.0); BG PH 7.448 (7.350-7.450); BG PO2 84.2 mmHg (75.0-100.0); BG SAMPLE SITE RIGHT BRACHIAL; BG TOTAL HEMOGLOBIN 9.4 g/dL (12.0-18.0); BG VENT MODE MASK - BIPAP
[2017-08-11 12:55] LABS: PLATELET ESTIMATE NORMAL
[2017-08-11] MEDS: CEFEPIME 1,000 MG in DEXTROSE 5% WATER 50 ML IV SCH (17:47)
[2017-08-11] MEDS: ATORVASTATIN CALCIUM 20MG TABLET PO SCH (21:08)
[2017-08-11] MEDS: FUROSEMIDE 20MG TABLET PO SCH (21:09)
[2017-08-12] VITALS (15 sets, daily range): BP systolic 115–154; BP diastolic 63–76
[2017-08-12] MEDS: VERAPAMIL HCL 2.5 MG/1 ML 2ML VIAL IV PRN ×2 (02:33→07:03)
[2017-08-12] MEDS: IPRATROPIUM/ALBUTEROL 0.5-3(2.5)MG/3ML NEB HHN SCH ×5 (03:54→20:22)
[2017-08-12] MEDS: PIPERACILLIN/TAZ 3.375G PREMIX 50 ML IV SCH ×2 (05:39→13:08)
[2017-08-12] MEDS: HYDRALAZINE HCL 25MG TABLET PO SCH ×3 (05:45→22:29)
[2017-08-12] MEDS: NITROGLYCERIN OINT 1GM/INCH UDPKT TD SCH ×3 (05:47→22:30)
[2017-08-12 06:39] LABS: HEMATOCRIT. 24.2 % (42.0-52.0); HEMOGLOBIN. 7.9 g/dL (14.0-18.0); MEAN CORPUSCULAR HEMOGLOBIN 28.5 pg (28.0-32.0); MEAN PLATELET VOLUME 6.8 fl (7.4-10.4); PLATELET 364 x1000/uL (130-400); RED BLOOD CELL COUNT 2.79 mill/uL (4.7-6.1); RED CELL DISTRIBUTION WIDTH 16.3 % (11.6-14.6)
[2017-08-12] MEDS: ACETYLCYSTEINE 100MG/ML 10% VIAL 4ML INH SCH ×2 (08:15→14:48)
[2017-08-12] MEDS: BLOOD SUGAR DIAGNOSTIC STRIP TEST SCH ×4 (08:16→20:33)
[2017-08-12] MEDS: DOXYCYCLINE HYCLATE 100MG CAPSULE PO SCH ×2 (09:23→20:32)
[2017-08-12] MEDS: TAMSULOSIN HCL 0.4MG SR CAPSULE PO SCH (09:24)
[2017-08-12] MEDS: FUROSEMIDE 20MG TABLET PO SCH ×2 (09:24→14:11)
[2017-08-12] MEDS: AMLODIPINE 5MG TABLET PO SCH ×2 (09:25→20:33)
[2017-08-12] MEDS: POTASSIUM CHLORIDE 20MEQ TABLET SR PO SCH (09:26)
[2017-08-12] MEDS: AMIODARONE HCL 200 MG TABLET PO SCH ×2 (09:26→20:33)
[2017-08-12] MEDS: ENOXAPARIN 80MG/0.8ML SYR SUBCUT SCH (09:28)
[2017-08-12] MEDS: ASPIRIN 81MG EC TABLET PO SCH (09:37)
[2017-08-12] MEDS: INSULIN LISPRO 100 UNITS/ML SUBCUT SCH ×4 (09:38→20:34)
[2017-08-12 16:05] LABS: PLATELET ESTIMATE NORMAL
[2017-08-12] MEDS: CEFEPIME 1,000 MG in DEXTROSE 5% WATER 50 ML IV SCH (17:24)
[2017-08-12] MEDS ORDERED: FUROSEMIDE 20MG TABLET PO SCH (18:00)
[2017-08-12] MEDS: ATORVASTATIN CALCIUM 20MG TABLET PO SCH (20:32)
[2017-08-13] VITALS (54 sets, daily range): BP systolic 86–185; BP diastolic 48–102
[2017-08-13] MEDS: IPRATROPIUM/ALBUTEROL 0.5-3(2.5)MG/3ML NEB HHN SCH ×6 (00:06→20:17)
[2017-08-13] MEDS: ACETYLCYSTEINE 100MG/ML 10% VIAL 4ML INH SCH ×3 (00:06→16:02)
[2017-08-13] MEDS: HYDRALAZINE HCL 25MG TABLET PO SCH ×3 (05:28→22:15)
[2017-08-13] MEDS: ACETAMINOPHEN 325MG TABLET PO PRN (05:28)
[2017-08-13] MEDS: NITROGLYCERIN OINT 1GM/INCH UDPKT TD SCH ×3 (05:29→22:16)
[2017-08-13] MEDS: VERAPAMIL HCL 2.5 MG/1 ML 2ML VIAL IV PRN (06:39)
[2017-08-13 07:06] LABS: HEMATOCRIT. 23.4 % (42.0-52.0); HEMOGLOBIN. 7.9 g/dL (14.0-18.0); MEAN CORPUSCULAR HEMOGLOBIN 29.1 pg (28.0-32.0); MEAN CORPUSCULAR VOLUME 86.9 fL (80.0-94.0); MEAN PLATELET VOLUME 6.9 fl (7.4-10.4); PLATELET 330 x1000/uL (130-400); RED CELL DISTRIBUTION WIDTH 15.8 % (11.6-14.6)
[2017-08-13] MEDS: BLOOD SUGAR DIAGNOSTIC STRIP TEST SCH ×4 (07:41→21:00)
[2017-08-13] MEDS: AMIODARONE HCL 200 MG TABLET PO SCH ×2 (07:45→21:39)
[2017-08-13] MEDS: POTASSIUM CHLORIDE 20MEQ TABLET SR PO SCH (08:28)
[2017-08-13] MEDS: DOXYCYCLINE HYCLATE 100MG CAPSULE PO SCH ×2 (08:28→21:40)
[2017-08-13] MEDS: ASPIRIN 81MG EC TABLET PO SCH (08:28)
[2017-08-13] MEDS: AMLODIPINE 5MG TABLET PO SCH ×2 (08:28→21:41)
[2017-08-13] MEDS: ENOXAPARIN 80MG/0.8ML SYR SUBCUT SCH (08:29)
[2017-08-13] MEDS: TAMSULOSIN HCL 0.4MG SR CAPSULE PO SCH (08:29)
[2017-08-13] MEDS: INSULIN LISPRO 100 UNITS/ML SUBCUT SCH ×4 (08:30→21:00)
[2017-08-13] MEDS: FUROSEMIDE 20MG TABLET PO SCH (08:31)
[2017-08-13 10:06] LABS: BG BASE EXCESS -1.3 mmol/L (-2.0-2.0); BG CARBOXYHEMOGLOBIN 0.3 % (0.5-1.5); BG DEOXYHEMOGLOBIN 17.1 % (0.0-5.0); BG FRACTION INSPIRED OXYGEN 99; BG HCO3 ACT 22.5 mmol/L (22.0-26.0); BG METHEMOGLOBIN 0.4 % (0.0-1.5); BG OXYGEN SATURATION 82.8 % (92.0-98.5); BG OXYHEMOGLOBIN 82.2 % (94.0-97.0); BG PCO2 34.3 mmHg (35.0-45.0); BG PH 7.435 (7.350-7.450); BG PO2 50.2 mmHg (75.0-100.0); BG SAMPLE SITE RIGHT RADIAL; BG TOTAL HEMOGLOBIN 9.6 g/dL (12.0-18.0); BG VENT MODE VAPOTHERM
[2017-08-13] MEDS ORDERED: NOREPINEPHRINE 4 MG in DEXT 5% WATER 246 ML IV PRN (10:30)
[2017-08-13] MEDS ORDERED: FENTANYL CITRATE/PF 500 MCG in SODIUM CHLORIDE 0.9% 40 ML IV PRN (10:30)
[2017-08-13] MEDS ORDERED: VECURONIUM BROMIDE 10 MG/VIAL IV ONE (10:45)
[2017-08-13] MEDS ORDERED: ETOMIDATE 2MG/ML 10ML VIAL IV ONE (10:45)
[2017-08-13] MEDS ORDERED: NOREPINEPHRINE 4 MG in SODIUM CHLORIDE 0.9% 246 ML IV PRN (12:00)
[2017-08-13 12:19] LABS: BG BASE EXCESS -1.8 mmol/L (-2.0-2.0); BG DEOXYHEMOGLOBIN 6.8 % (0.0-5.0); BG FRACTION INSPIRED OXYGEN 100; BG HCO3 ACT 24.8 mmol/L (22.0-26.0); BG METHEMOGLOBIN 0.4 % (0.0-1.5); BG OXYGEN SATURATION 93.2 % (92.0-98.5); BG OXYHEMOGLOBIN 92.8 % (94.0-97.0); BG PCO2 51.2 mmHg (35.0-45.0); BG PH 7.303 (7.350-7.450); BG PO2 77.4 mmHg (75.0-100.0); BG SAMPLE SITE RIGHT RADIAL; BG TIDAL VOLUME(mL) 550 mL; BG TOTAL HEMOGLOBIN 9.7 g/dL (12.0-18.0); BG VENT MODE VENT - A/C; BG VENT RATE 18 set
[2017-08-13 13:01] LABS: PLATELET ESTIMATE NORMAL
[2017-08-13] MEDS: PROPOFOL 10MG/ML 100ML 100 ML IV PRN ×2 (13:05→21:36)
[2017-08-13] MEDS: PANTOPRAZOLE SODIUM 40 MG/VIAL IV SCH (14:15)
[2017-08-13] MEDS: METOPROLOL TARTRATE 25MG TABLET PO SCH ×2 (14:30→21:38)
[2017-08-13] MEDS: CEFEPIME 1,000 MG in DEXTROSE 5% WATER 50 ML IV SCH (18:19)
[2017-08-13] MEDS: ATORVASTATIN CALCIUM 20MG TABLET PO SCH (21:37)
[2017-08-14] VITALS (85 sets, daily range): BP systolic 96–148; BP diastolic 47–82
[2017-08-14] MEDS: ACETYLCYSTEINE 100MG/ML 10% VIAL 4ML INH SCH ×6 (00:33→23:52)
[2017-08-14] MEDS: IPRATROPIUM/ALBUTEROL 0.5-3(2.5)MG/3ML NEB HHN SCH ×7 (00:33→23:52)
[2017-08-14 05:35] LABS: HEMATOCRIT. 22.3 % (42.0-52.0); HEMOGLOBIN. 7.5 g/dL (14.0-18.0); MEAN CORPUSCULAR HEMOGLOBIN 29.1 pg (28.0-32.0); MEAN CORPUSCULAR VOLUME 86.7 fL (80.0-94.0); MEAN PLATELET VOLUME 6.9 fl (7.4-10.4); PLATELET 331 x1000/uL (130-400); RED BLOOD CELL COUNT 2.57 mill/uL (4.7-6.1); RED CELL DISTRIBUTION WIDTH 15.7 % (11.6-14.6)
[2017-08-14] MEDS: HYDRALAZINE HCL 25MG TABLET PO SCH ×3 (06:05→22:57)
[2017-08-14] MEDS: NITROGLYCERIN OINT 1GM/INCH UDPKT TD SCH (06:06)
[2017-08-14] MEDS: BLOOD SUGAR DIAGNOSTIC STRIP TEST SCH ×4 (06:19→20:47)
[2017-08-14] MEDS: INSULIN LISPRO 100 UNITS/ML SUBCUT SCH ×4 (06:20→20:59)
[2017-08-14 07:28] LABS: BG BASE EXCESS -1.1 mmol/L (-2.0-2.0); BG CARBOXYHEMOGLOBIN 0.3 % (0.5-1.5); BG DEOXYHEMOGLOBIN 3.2 % (0.0-5.0); BG HCO3 ACT 23.2 mmol/L (22.0-26.0); BG METHEMOGLOBIN 0.3 % (0.0-1.5); BG OXYGEN SATURATION 96.8 % (92.0-98.5); BG OXYHEMOGLOBIN 96.2 % (94.0-97.0); BG PCO2 36.5 mmHg (35.0-45.0); BG PH 7.421 (7.350-7.450); BG PO2 92.8 mmHg (75.0-100.0); BG SAMPLE SITE RIGHT RADIAL; BG TIDAL VOLUME(mL) 550 mL; BG TOTAL HEMOGLOBIN 7.5 g/dL (12.0-18.0); BG VENT MODE VENT - A/C; BG VENT RATE 16 set
[2017-08-14] MEDS: PROPOFOL 10MG/ML 100ML 100 ML IV PRN ×2 (07:44→18:27)
[2017-08-14] MEDS: PANTOPRAZOLE SODIUM 40 MG/VIAL IV SCH (09:37)
[2017-08-14] MEDS: FUROSEMIDE 20MG TABLET PO SCH (09:37)
[2017-08-14] MEDS: ASPIRIN 81MG EC TABLET PO SCH (09:37)
[2017-08-14] MEDS: DOXYCYCLINE HYCLATE 100MG CAPSULE PO SCH ×2 (09:38→20:38)
[2017-08-14] MEDS: POTASSIUM CHLORIDE 20MEQ TABLET SR PO SCH (09:38)
[2017-08-14] MEDS: TAMSULOSIN HCL 0.4MG SR CAPSULE PO SCH (09:38)
[2017-08-14] MEDS: AMLODIPINE 5MG TABLET PO SCH ×2 (09:38→20:41)
[2017-08-14] MEDS: AMIODARONE HCL 200 MG TABLET PO SCH ×2 (09:38→20:38)
[2017-08-14] MEDS: METOPROLOL TARTRATE 25MG TABLET PO SCH ×2 (09:39→20:39)
[2017-08-14] MEDS ORDERED: SODIUM CHLORIDE 3% FOR INH 15ML VIAL NEB INH SCH (10:00)
[2017-08-14] MEDS ORDERED: LIDOCAINE HCL/PF 1% 10 MG/ML 30ML VIAL ONE ×2 (14:06→14:39)
[2017-08-14 14:13] LABS: PLATELET ESTIMATE NORMAL
[2017-08-14 14:17] LABS: ANTI-MYELOPEROXIDASE AB < 9.0 U/mL (0.0-9.0); ANTI-PROTEINASE 3 ABS < 3.5 U/mL (0.0-3.5)
[2017-08-14] MEDS ORDERED: SODIUM BICARBONATE 4% (2.4MEQ) 5ML VIAL IV ONE (14:39)
[2017-08-14] MEDS: CEFEPIME 1,000 MG in DEXTROSE 5% WATER 50 ML IV SCH (18:26)
[2017-08-14] MEDS: ATORVASTATIN CALCIUM 20MG TABLET PO SCH (20:37)
[2017-08-15] VITALS (93 sets, daily range): BP systolic 97–154; BP diastolic 47–77
[2017-08-15] MEDS: IPRATROPIUM/ALBUTEROL 0.5-3(2.5)MG/3ML NEB HHN SCH ×6 (03:50→23:45)
[2017-08-15] MEDS: ACETYLCYSTEINE 100MG/ML 10% VIAL 4ML INH SCH ×5 (03:50→23:45)
[2017-08-15] MEDS: INSULIN LISPRO 100 UNITS/ML SUBCUT SCH ×4 (06:24→22:30)
[2017-08-15] MEDS: HYDRALAZINE HCL 25MG TABLET PO SCH ×3 (06:25→21:58)
[2017-08-15] MEDS: BLOOD SUGAR DIAGNOSTIC STRIP TEST SCH ×4 (06:25→21:00)
[2017-08-15] MEDS: PROPOFOL 10MG/ML 100ML 100 ML IV PRN ×3 (06:29→20:05)
[2017-08-15] MEDS: FUROSEMIDE 20MG TABLET PO SCH (08:10)
[2017-08-15] MEDS: METOPROLOL TARTRATE 25MG TABLET PO SCH ×2 (08:10→14:05)
[2017-08-15] MEDS: AMLODIPINE 5MG TABLET PO SCH (08:10)
[2017-08-15] MEDS: TAMSULOSIN HCL 0.4MG SR CAPSULE PO SCH (08:10)
[2017-08-15] MEDS: AMIODARONE HCL 200 MG TABLET PO SCH ×3 (08:10→21:55)
[2017-08-15] MEDS: DOXYCYCLINE HYCLATE 100MG CAPSULE PO SCH ×2 (08:11→21:56)
[2017-08-15] MEDS: ASPIRIN 81MG TABLET NG SCH (08:25)
[2017-08-15] MEDS: PANTOPRAZOLE SODIUM 40 MG/VIAL IV SCH (08:25)
[2017-08-15] MEDS: POTASSIUM CHLORIDE 20MEQ/PACKET NG SCH (08:25)
[2017-08-15] MEDS: ACETAMINOPHEN 325MG TABLET PO PRN (08:25)
[2017-08-15 08:42] LABS: BG BASE EXCESS -0.8 mmol/L (-2.0-2.0); BG CARBOXYHEMOGLOBIN 0.5 % (0.5-1.5); BG DEOXYHEMOGLOBIN 5.7 % (0.0-5.0); BG FRACTION INSPIRED OXYGEN 100; BG HCO3 ACT 23.3 mmol/L (22.0-26.0); BG METHEMOGLOBIN 0.1 % (0.0-1.5); BG OXYGEN SATURATION 94.3 % (92.0-98.5); BG OXYHEMOGLOBIN 93.7 % (94.0-97.0); BG PCO2 36.1 mmHg (35.0-45.0); BG PH 7.428 (7.350-7.450); BG PO2 76.7 mmHg (75.0-100.0); BG SAMPLE SITE RIGHT RADIAL; BG TIDAL VOLUME(mL) 550 mL; BG TOTAL HEMOGLOBIN 8.7 g/dL (12.0-18.0); BG VENT MODE VENT - A/C; BG VENT RATE 16 set
[2017-08-15 08:42] LABS: HEMATOCRIT. 25.8 % (42.0-52.0); HEMOGLOBIN. 8.5 g/dL (14.0-18.0); MEAN CORPUSCULAR HEMOGLOBIN 28.5 pg (28.0-32.0); MEAN CORPUSCULAR VOLUME 86.9 fL (80.0-94.0); MEAN PLATELET VOLUME 6.7 fl (7.4-10.4); PLATELET 343 x1000/uL (130-400); RED BLOOD CELL COUNT 2.97 mill/uL (4.7-6.1); RED CELL DISTRIBUTION WIDTH 16.3 % (11.6-14.6)
[2017-08-15 08:51] LABS: CHLORIDE 107 mEq/L (98-107)
[2017-08-15 09:09] LABS: ANTI-NUCLEAR ANTIBODIES DIRECT Negative (Negative)
[2017-08-15 13:38] LABS: PLATELET ESTIMATE NORMAL
[2017-08-15] MEDS: DILTIAZEM HCL 60MG TABLET PO SCH ×2 (14:00→21:57)
[2017-08-15] MEDS: VERAPAMIL HCL 2.5 MG/1 ML 2ML VIAL IV PRN (14:04)
[2017-08-15] MEDS: METHYLPREDNISOLONE SOD SUCC 125 MG/2 ML VIAL IV SCH ×2 (14:04→21:56)
[2017-08-15 15:11] LABS: ATYPICAL P-ANCA 1:40 titer (Neg:<1:20); CYTOPLASMIC C-ANCA <1:20 titer (Neg:<1:20); PERINUCLEAR P-ANCA <1:20 titer (Neg:<1:20)
[2017-08-15 17:06] LABS: HISTOPLASMA ABS QT DID Negative (Neg:<1:1)
[2017-08-15] MEDS: CEFEPIME 1,000 MG in DEXTROSE 5% WATER 50 ML IV SCH (17:34)
[2017-08-15] MEDS: CLOTRIMAZOLE/BETAMETHASONE 1/0.05% CREAM 15GM TOP SCH (21:00)
[2017-08-15] MEDS: ATORVASTATIN CALCIUM 20MG TABLET PO SCH (21:55)
[2017-08-16] VITALS (95 sets, daily range): BP systolic 82–149; BP diastolic 44–64
[2017-08-16] MEDS: IPRATROPIUM/ALBUTEROL 0.5-3(2.5)MG/3ML NEB HHN SCH ×6 (03:00→23:53)
[2017-08-16] MEDS: PROPOFOL 10MG/ML 100ML 100 ML IV PRN ×4 (03:08→18:09)
[2017-08-16] MEDS: METHYLPREDNISOLONE SOD SUCC 125 MG/2 ML VIAL IV SCH ×3 (06:28→21:43)
[2017-08-16] MEDS: HYDRALAZINE HCL 25MG TABLET PO SCH ×3 (06:29→21:51)
[2017-08-16] MEDS: DILTIAZEM HCL 60MG TABLET PO SCH ×3 (06:29→21:53)
[2017-08-16] MEDS: BLOOD SUGAR DIAGNOSTIC STRIP TEST SCH ×4 (06:41→21:53)
[2017-08-16] MEDS: INSULIN LISPRO 100 UNITS/ML SUBCUT SCH ×4 (07:18→22:01)
[2017-08-16 07:53] LABS: BG BASE EXCESS -3.5 mmol/L (-2.0-2.0); BG CARBOXYHEMOGLOBIN 0.1 % (0.5-1.5); BG DEOXYHEMOGLOBIN 0.9 % (0.0-5.0); BG FRACTION INSPIRED OXYGEN 100; BG HCO3 ACT 21.2 mmol/L (22.0-26.0); BG METHEMOGLOBIN 0.5 % (0.0-1.5); BG OXYGEN SATURATION 99.1 % (92.0-98.5); BG OXYHEMOGLOBIN 98.5 % (94.0-97.0); BG PCO2 36.5 mmHg (35.0-45.0); BG PH 7.382 (7.350-7.450); BG PO2 189.7 mmHg (75.0-100.0); BG SAMPLE SITE RIGHT BRACHIAL; BG TIDAL VOLUME(mL) 550 mL; BG TOTAL HEMOGLOBIN 8.9 g/dL (12.0-18.0); BG VENT MODE VENT - A/C; BG VENT RATE 16 set
[2017-08-16] MEDS: ACETYLCYSTEINE 100MG/ML 10% VIAL 4ML INH SCH ×5 (08:30→23:54)
[2017-08-16 08:52] LABS: HEMATOCRIT. 23.2 % (42.0-52.0); HEMOGLOBIN. 7.5 g/dL (14.0-18.0); MEAN CORPUSCULAR HEMOGLOBIN 28.4 pg (28.0-32.0); MEAN CORPUSCULAR VOLUME 87.3 fL (80.0-94.0); MEAN PLATELET VOLUME 7.1 fl (7.4-10.4); PLATELET 298 x1000/uL (130-400); RED BLOOD CELL COUNT 2.66 mill/uL (4.7-6.1); RED CELL DISTRIBUTION WIDTH 16.5 % (11.6-14.6)
[2017-08-16] MEDS: CLOTRIMAZOLE/BETAMETHASONE 1/0.05% CREAM 15GM TOP SCH ×2 (09:00→21:00)
[2017-08-16 09:08] LABS: CHLORIDE 105 mEq/L (98-107)
[2017-08-16 09:19] LABS: PLATELET ESTIMATE NORMAL
[2017-08-16] MEDS: AMIODARONE HCL 200 MG TABLET PO SCH ×2 (09:37→21:42)
[2017-08-16] MEDS: POTASSIUM CHLORIDE 20MEQ/PACKET NG SCH (09:37)
[2017-08-16] MEDS: ASPIRIN 81MG TABLET NG SCH (09:37)
[2017-08-16] MEDS: DOXYCYCLINE HYCLATE 100MG CAPSULE PO SCH ×2 (09:37→21:43)
[2017-08-16] MEDS: PANTOPRAZOLE SODIUM 40 MG/VIAL IV SCH (09:37)
[2017-08-16] MEDS: TAMSULOSIN HCL 0.4MG SR CAPSULE PO SCH (09:38)
[2017-08-16] MEDS ORDERED: LIDOCAINE HCL/EPINEPHRINE 1%-EPI 1:100,000 20 ML VIAL MC NR (10:15)
[2017-08-16] MEDS ORDERED: LIDOCAINE HCL/EPINEPHRINE 1%-EPI 1:100,000 50 ML VIAL INFIL NR (10:21)
[2017-08-16] MEDS: CEFEPIME 1,000 MG in DEXTROSE 5% WATER 50 ML IV SCH (17:47)
[2017-08-16] MEDS: MICONAZOLE NITRATE 2% OINT 71GM TOP SCH (21:42)
[2017-08-16] MEDS: ATORVASTATIN CALCIUM 20MG TABLET PO SCH (21:42)
[2017-08-16] MEDS: INSULIN GLARGINE UD 100 UNITS/ML SYR SUBCUT SCH (22:02)
[2017-08-17] VITALS (104 sets, daily range): BP systolic 101–141; BP diastolic 45–99
[2017-08-17] MEDS: PROPOFOL 10MG/ML 100ML 100 ML IV PRN ×2 (00:18→05:10)
[2017-08-17] MEDS: ACETYLCYSTEINE 100MG/ML 10% VIAL 4ML INH SCH ×5 (04:21→20:36)
[2017-08-17] MEDS: IPRATROPIUM/ALBUTEROL 0.5-3(2.5)MG/3ML NEB HHN SCH ×5 (04:21→20:37)
[2017-08-17] MEDS: METHYLPREDNISOLONE SOD SUCC 125 MG/2 ML VIAL IV SCH (05:10)
[2017-08-17] MEDS: HYDRALAZINE HCL 25MG TABLET PO SCH ×3 (05:11→21:12)
[2017-08-17] MEDS: DILTIAZEM HCL 60MG TABLET PO SCH ×3 (05:11→21:12)
[2017-08-17 05:54] LABS: MEAN CORPUSCULAR HEMOGLOBIN 28.5 pg (28.0-32.0); MEAN CORPUSCULAR VOLUME 86.3 fL (80.0-94.0); MEAN PLATELET VOLUME 7.3 fl (7.4-10.4); PLATELET 267 x1000/uL (130-400); RED CELL DISTRIBUTION WIDTH 16.3 % (11.6-14.6)
[2017-08-17 06:01] LABS: HEMATOCRIT. 20.7 % (42.0-52.0); HEMOGLOBIN. 6.8 g/dL (14.0-18.0)
[2017-08-17] MEDS: BLOOD SUGAR DIAGNOSTIC STRIP TEST SCH ×4 (06:09→21:00)
[2017-08-17] MEDS ORDERED: INSULIN LISPRO 100 UNITS/ML SUBCUT NR (07:00)
[2017-08-17] MEDS: INSULIN LISPRO 100 UNITS/ML SUBCUT SCH ×5 (07:29→21:17)
[2017-08-17] MEDS ORDERED: PROPOFOL 10MG/ML 100ML 100 ML IV PRN (08:33)
[2017-08-17 08:41] LABS: PLATELET ESTIMATE NORMAL
[2017-08-17] MEDS: DOCUSATE SODIUM 100MG CAPSULE PO PRN (08:47)
[2017-08-17] MEDS: PANTOPRAZOLE SODIUM 40 MG/VIAL IV SCH (08:47)
[2017-08-17] MEDS: AMIODARONE HCL 200 MG TABLET PO SCH ×2 (08:47→21:13)
[2017-08-17] MEDS: DOXYCYCLINE HYCLATE 100MG CAPSULE PO SCH (08:47)
[2017-08-17] MEDS: ASPIRIN 81MG TABLET NG SCH (08:47)
[2017-08-17] MEDS: POTASSIUM CHLORIDE 20MEQ/PACKET NG SCH (08:47)
[2017-08-17] MEDS: TAMSULOSIN HCL 0.4MG SR CAPSULE PO SCH (08:48)
[2017-08-17 08:54] LABS: BG BASE EXCESS -5.9 mmol/L (-2.0-2.0); BG CARBOXYHEMOGLOBIN 0.4 % (0.5-1.5); BG DEOXYHEMOGLOBIN 3.2 % (0.0-5.0); BG FRACTION INSPIRED OXYGEN 60; BG HCO3 ACT 19.8 mmol/L (22.0-26.0); BG OXYGEN SATURATION 96.8 % (92.0-98.5); BG OXYHEMOGLOBIN 96.4 % (94.0-97.0); BG PCO2 39.8 mmHg (35.0-45.0); BG PH 7.314 (7.350-7.450); BG PO2 99.5 mmHg (75.0-100.0); BG SAMPLE SITE RIGHT BRACHIAL; BG TIDAL VOLUME(mL) 550 mL; BG VENT MODE VENT - A/C; BG VENT RATE 16 set
[2017-08-17] MEDS: MICONAZOLE NITRATE 2% OINT 71GM TOP SCH ×2 (09:28→21:13)
[2017-08-17 12:19] LABS: KETONES URINE 1+ (NEGATIVE); LEUKOCYTE ESTERASE URINE 2+ (NEGATIVE); NITRITE URINE POSITIVE (NEGATIVE); OCCULT BLOOD URINE 3+ (NEGATIVE); PH URINE 5.5 (4.5-8.0); PROTEIN URINE 3+ (NEGATIVE); SPECIFIC GRAVITY URINE 1.025 (1.005-1.030); UROBILINOGEN URINE 0.2 E.U./dL (0.2-1.0)
[2017-08-17 12:20] LABS: CLARITY URINE TURBID (CLEAR); COLOR URINE BLOODY (YELLOW)
[2017-08-17] MEDS: INSULIN LISPRO 100 UNITS/ML SUBCUT PRN (12:37)
[2017-08-17] MEDS: CLOTRIMAZOLE/BETAMETHASONE 1/0.05% CREAM 15GM TOP SCH ×2 (13:25→21:13)
[2017-08-17] MEDS: METHYLPREDNISOLONE SOD SUCC 40 MG/ML VIAL IV SCH ×2 (13:26→23:09)
[2017-08-17] MEDS: ATORVASTATIN CALCIUM 20MG TABLET PO SCH (21:12)
[2017-08-17] MEDS: INSULIN GLARGINE UD 100 UNITS/ML SYR SUBCUT SCH (21:14)
[2017-08-18] VITALS (94 sets, daily range): BP systolic 88–145; BP diastolic 42–68
[2017-08-18] MEDS: ACETYLCYSTEINE 100MG/ML 10% VIAL 4ML INH SCH ×6 (00:29→20:36)
[2017-08-18] MEDS: IPRATROPIUM/ALBUTEROL 0.5-3(2.5)MG/3ML NEB HHN SCH ×6 (00:29→20:36)
[2017-08-18 05:34] LABS: HEMATOCRIT. 27.1 % (42.0-52.0); HEMOGLOBIN. 9.1 g/dL (14.0-18.0); MEAN CORPUSCULAR HEMOGLOBIN 28.8 pg (28.0-32.0); MEAN CORPUSCULAR VOLUME 85.8 fL (80.0-94.0); PLATELET 281 x1000/uL (130-400); RED BLOOD CELL COUNT 3.15 mill/uL (4.7-6.1); RED CELL DISTRIBUTION WIDTH 16.5 % (11.6-14.6)
[2017-08-18] MEDS: HYDRALAZINE HCL 25MG TABLET PO SCH ×3 (06:06→21:42)
[2017-08-18] MEDS: METHYLPREDNISOLONE SOD SUCC 40 MG/ML VIAL IV SCH ×3 (06:06→21:40)
[2017-08-18] MEDS: INSULIN LISPRO 100 UNITS/ML SUBCUT SCH ×4 (06:07→20:52)
[2017-08-18] MEDS: INSULIN LISPRO 100 UNITS/ML SUBCUT PRN (06:07)
[2017-08-18] MEDS: BLOOD SUGAR DIAGNOSTIC STRIP TEST SCH ×4 (06:07→20:36)
[2017-08-18] MEDS: DILTIAZEM HCL 60MG TABLET PO SCH ×3 (06:14→21:39)
[2017-08-18 07:32] LABS: PLATELET ESTIMATE NORMAL
[2017-08-18 07:32] LABS: BG BASE EXCESS -7.6 mmol/L (-2.0-2.0); BG DEOXYHEMOGLOBIN 1.2 % (0.0-5.0); BG METHEMOGLOBIN 0.3 % (0.0-1.5); BG OXYGEN SATURATION 98.8 % (92.0-98.5); BG OXYHEMOGLOBIN 98.5 % (94.0-97.0); BG PCO2 36.9 mmHg (35.0-45.0); BG PH 7.307 (7.350-7.450); BG SAMPLE SITE RIGHT RADIAL; BG TIDAL VOLUME(mL) 550 mL; BG TOTAL HEMOGLOBIN 10.9 g/dL (12.0-18.0); BG VENT MODE VENT - A/C; BG VENT RATE 16 set
[2017-08-18] MEDS: PANTOPRAZOLE SODIUM 40 MG/VIAL IV SCH (09:01)
[2017-08-18] MEDS: AMIODARONE HCL 200 MG TABLET PO SCH ×2 (09:01→20:36)
[2017-08-18] MEDS: TAMSULOSIN HCL 0.4MG SR CAPSULE PO SCH (09:01)
[2017-08-18] MEDS: ASPIRIN 81MG TABLET NG SCH (09:01)
[2017-08-18] MEDS: CLOTRIMAZOLE/BETAMETHASONE 1/0.05% CREAM 15GM TOP SCH ×2 (09:07→21:40)
[2017-08-18] MEDS: PROPOFOL 10MG/ML 100ML 100 ML IV PRN (10:36)
[2017-08-18] MEDS: ATORVASTATIN CALCIUM 20MG TABLET PO SCH (20:36)
[2017-08-18] MEDS: INSULIN GLARGINE UD 100 UNITS/ML SYR SUBCUT SCH (21:42)
[2017-08-19] VITALS (90 sets, daily range): BP systolic 90–129; BP diastolic 49–80
[2017-08-19] MEDS: IPRATROPIUM/ALBUTEROL 0.5-3(2.5)MG/3ML NEB HHN SCH ×6 (00:49→20:15)
[2017-08-19] MEDS: ACETYLCYSTEINE 100MG/ML 10% VIAL 4ML INH SCH ×4 (00:49→12:08)
[2017-08-19] MEDS: PROPOFOL 10MG/ML 100ML 100 ML IV PRN ×2 (01:51→16:40)
[2017-08-19] MEDS: BLOOD SUGAR DIAGNOSTIC STRIP TEST SCH ×4 (05:27→20:48)
[2017-08-19] MEDS: DILTIAZEM HCL 60MG TABLET PO SCH ×3 (05:31→22:45)
[2017-08-19] MEDS: METHYLPREDNISOLONE SOD SUCC 40 MG/ML VIAL IV SCH ×3 (05:31→22:47)
[2017-08-19] MEDS: HYDRALAZINE HCL 25MG TABLET PO SCH ×3 (05:32→22:47)
[2017-08-19] MEDS: INSULIN LISPRO 100 UNITS/ML SUBCUT SCH ×4 (06:13→20:49)
[2017-08-19] MEDS: INSULIN LISPRO 100 UNITS/ML SUBCUT PRN (06:15)
[2017-08-19 07:12] LABS: BG BASE EXCESS -4.4 mmol/L (-2.0-2.0); BG CARBOXYHEMOGLOBIN 0.3 % (0.5-1.5); BG DEOXYHEMOGLOBIN 0.7 % (0.0-5.0); BG HCO3 ACT 20.2 mmol/L (22.0-26.0); BG METHEMOGLOBIN 0.2 % (0.0-1.5); BG OXYGEN SATURATION 99.3 % (92.0-98.5); BG OXYHEMOGLOBIN 98.8 % (94.0-97.0); BG PCO2 35.3 mmHg (35.0-45.0); BG PH 7.375 (7.350-7.450); BG PO2 227.6 mmHg (75.0-100.0); BG SAMPLE SITE RIGHT RADIAL; BG TIDAL VOLUME(mL) 550 mL; BG TOTAL HEMOGLOBIN 10.2 g/dL (12.0-18.0); BG VENT MODE VENT - A/C; BG VENT RATE 16 set
[2017-08-19] MEDS: TAMSULOSIN HCL 0.4MG SR CAPSULE PO SCH (09:10)
[2017-08-19] MEDS: ASPIRIN 81MG TABLET NG SCH (09:10)
[2017-08-19] MEDS: PANTOPRAZOLE SODIUM 40 MG/VIAL IV SCH (09:10)
[2017-08-19] MEDS: AMIODARONE HCL 200 MG TABLET PO SCH ×2 (09:10→20:48)
[2017-08-19] MEDS: CLOTRIMAZOLE/BETAMETHASONE 1/0.05% CREAM 15GM TOP SCH ×2 (09:10→22:44)
[2017-08-19 10:29] LABS: HEMATOCRIT. 29.5 % (42.0-52.0); HEMOGLOBIN. 9.8 g/dL (14.0-18.0); MEAN CORPUSCULAR HEMOGLOBIN 28.2 pg (28.0-32.0); MEAN CORPUSCULAR VOLUME 84.8 fL (80.0-94.0); MEAN PLATELET VOLUME 7.3 fl (7.4-10.4); PLATELET 318 x1000/uL (130-400); RED BLOOD CELL COUNT 3.48 mill/uL (4.7-6.1)
[2017-08-19 13:35] LABS: PLATELET ESTIMATE NORMAL
[2017-08-19] MEDS: ATORVASTATIN CALCIUM 20MG TABLET PO SCH (20:48)
[2017-08-19] MEDS: INSULIN GLARGINE UD 100 UNITS/ML SYR SUBCUT SCH (22:44)
[2017-08-20] VITALS (89 sets, daily range): BP systolic 84–152; BP diastolic 53–88
[2017-08-20] MEDS: PROPOFOL 10MG/ML 100ML 100 ML IV PRN (01:36)
[2017-08-20] MEDS: IPRATROPIUM/ALBUTEROL 0.5-3(2.5)MG/3ML NEB HHN SCH ×7 (04:05→23:56)
[2017-08-20 05:23] LABS: HEMATOCRIT. 29.9 % (42.0-52.0); MEAN CORPUSCULAR HEMOGLOBIN 28.5 pg (28.0-32.0); MEAN CORPUSCULAR VOLUME 85.7 fL (80.0-94.0); MEAN PLATELET VOLUME 7.3 fl (7.4-10.4); PLATELET 324 x1000/uL (130-400); RED BLOOD CELL COUNT 3.49 mill/uL (4.7-6.1); RED CELL DISTRIBUTION WIDTH 16.3 % (11.6-14.6)
[2017-08-20] MEDS: HYDRALAZINE HCL 25MG TABLET PO SCH (06:00)
[2017-08-20] MEDS: DILTIAZEM HCL 60MG TABLET PO SCH ×4 (06:00→23:21)
[2017-08-20] MEDS: METHYLPREDNISOLONE SOD SUCC 40 MG/ML VIAL IV SCH ×3 (06:18→21:54)
[2017-08-20] MEDS: BLOOD SUGAR DIAGNOSTIC STRIP TEST SCH ×4 (06:19→21:00)
[2017-08-20] MEDS: INSULIN LISPRO 100 UNITS/ML SUBCUT PRN (06:21)
[2017-08-20] MEDS: INSULIN LISPRO 100 UNITS/ML SUBCUT SCH ×4 (06:21→21:56)
[2017-08-20 08:19] LABS: BG BASE EXCESS -9.7 mmol/L (-2.0-2.0); BG CARBOXYHEMOGLOBIN 0.5 % (0.5-1.5); BG DEOXYHEMOGLOBIN 0.6 % (0.0-5.0); BG FRACTION INSPIRED OXYGEN 50; BG METHEMOGLOBIN 0.4 % (0.0-1.5); BG OXYGEN SATURATION 99.4 % (92.0-98.5); BG OXYHEMOGLOBIN 98.5 % (94.0-97.0); BG PCO2 34.3 mmHg (35.0-45.0); BG PH 7.286 (7.350-7.450); BG PO2 219.7 mmHg (75.0-100.0); BG SAMPLE SITE RIGHT BRACHIAL; BG TIDAL VOLUME(mL) 550 mL; BG VENT MODE VENT - A/C; BG VENT RATE 16 set
[2017-08-20] MEDS: PANTOPRAZOLE SODIUM 40 MG/VIAL IV SCH (08:39)
[2017-08-20] MEDS: ASPIRIN 81MG TABLET NG SCH (08:40)
[2017-08-20] MEDS: AMIODARONE HCL 200 MG TABLET PO SCH ×2 (08:40→22:09)
[2017-08-20] MEDS: CLOTRIMAZOLE/BETAMETHASONE 1/0.05% CREAM 15GM TOP SCH ×2 (08:42→22:10)
[2017-08-20] MEDS: TAMSULOSIN HCL 0.4MG SR CAPSULE PO SCH (08:53)
[2017-08-20 09:07] LABS: PLATELET ESTIMATE NORMAL
[2017-08-20] MEDS ORDERED: SODIUM BICARBONATE 8.4% 1 MEQ/ML 50ML SYR IV SCH (09:30)
[2017-08-20] MEDS ORDERED: SODIUM CHLORIDE 0.45% IV PRN (13:00)
[2017-08-20] MEDS ORDERED: PHENYLEPHRINE IV PRN (13:00)
[2017-08-20] MEDS: INSULIN GLARGINE UD 100 UNITS/ML SYR SUBCUT SCH ×2 (15:09→23:22)
[2017-08-20] MEDS ORDERED: ALBUMIN HUMAN 25GM/100ML (25%) IV NR (17:00)
[2017-08-20] MEDS ORDERED: DIGOXIN 500MCG/2ML AMP IV NR (17:45)
[2017-08-20] MEDS ORDERED: PROPOFOL 10MG/ML 100ML 100 ML IV PRN (18:15)
[2017-08-20] MEDS ORDERED: NOREPINEPHRINE 4 MG in DEXT 5% WATER 246 ML IV PRN (21:15)
[2017-08-20] MEDS: PHENYLEPHRINE 40 MG in DEXT 5% WATER 246 ML IV PRN (21:54)
[2017-08-20] MEDS: ATORVASTATIN CALCIUM 20MG TABLET PO SCH (21:54)
[2017-08-20] MEDS: DOCUSATE SODIUM 100MG CAPSULE PO PRN (23:20)
[2017-08-21] VITALS (94 sets, daily range): BP systolic 87–142; BP diastolic 41–84
[2017-08-21] MEDS: IPRATROPIUM/ALBUTEROL 0.5-3(2.5)MG/3ML NEB HHN SCH ×5 (04:00→20:07)
[2017-08-21] MEDS: BLOOD SUGAR DIAGNOSTIC STRIP TEST SCH ×4 (05:50→21:00)
[2017-08-21] MEDS: METHYLPREDNISOLONE SOD SUCC 40 MG/ML VIAL IV SCH ×3 (05:56→22:19)
[2017-08-21] MEDS: DILTIAZEM HCL 60MG TABLET PO SCH ×3 (05:56→17:46)
[2017-08-21] MEDS: INSULIN LISPRO 100 UNITS/ML SUBCUT SCH ×4 (06:02→21:20)
[2017-08-21 06:25] LABS: HEMATOCRIT. 27.5 % (42.0-52.0); HEMOGLOBIN. 9.1 g/dL (14.0-18.0); MEAN CORPUSCULAR HEMOGLOBIN 28.1 pg (28.0-32.0); MEAN CORPUSCULAR VOLUME 84.7 fL (80.0-94.0); PLATELET 341 x1000/uL (130-400); RED BLOOD CELL COUNT 3.25 mill/uL (4.7-6.1)
[2017-08-21 08:57] LABS: BG BASE EXCESS -2.7 mmol/L (-2.0-2.0); BG CARBOXYHEMOGLOBIN 0.3 % (0.5-1.5); BG DEOXYHEMOGLOBIN 1.9 % (0.0-5.0); BG FRACTION INSPIRED OXYGEN 35; BG HCO3 ACT 21.9 mmol/L (22.0-26.0); BG METHEMOGLOBIN 0.3 % (0.0-1.5); BG OXYGEN SATURATION 98.1 % (92.0-98.5); BG OXYHEMOGLOBIN 97.5 % (94.0-97.0); BG PCO2 37.1 mmHg (35.0-45.0); BG PH 7.388 (7.350-7.450); BG PO2 130.9 mmHg (75.0-100.0); BG SAMPLE SITE RIGHT BRACHIAL; BG TIDAL VOLUME(mL) 550 mL; BG TOTAL HEMOGLOBIN 11.1 g/dL (12.0-18.0); BG VENT MODE VENT - A/C; BG VENT RATE 18 set
[2017-08-21] MEDS: TAMSULOSIN HCL 0.4MG SR CAPSULE PO SCH (09:00)
[2017-08-21] MEDS: PANTOPRAZOLE SODIUM 40 MG/VIAL IV SCH (09:29)
[2017-08-21] MEDS: ASPIRIN 81MG TABLET NG SCH (09:29)
[2017-08-21] MEDS: AMIODARONE HCL 200 MG TABLET PO SCH ×2 (09:29→21:03)
[2017-08-21] MEDS: CLOTRIMAZOLE/BETAMETHASONE 1/0.05% CREAM 15GM TOP SCH (09:30)
[2017-08-21] MEDS ORDERED: SODIUM CHLORIDE 0.9% 200 ML IV ONE (09:45)
[2017-08-21 11:35] LABS: PLATELET ESTIMATE NORMAL
[2017-08-21] MEDS: INSULIN GLARGINE UD 100 UNITS/ML SYR SUBCUT SCH ×2 (11:57→22:46)
[2017-08-21] MEDS ORDERED: PROPOFOL 10MG/ML 100ML 100 ML IV PRN (18:30)
[2017-08-21] MEDS: ATORVASTATIN CALCIUM 20MG TABLET PO SCH (21:03)
[2017-08-22] VITALS (84 sets, daily range): BP systolic 80–143; BP diastolic 43–85
[2017-08-22] MEDS: DILTIAZEM HCL 60MG TABLET PO SCH ×4 (00:12→17:37)
[2017-08-22] MEDS: IPRATROPIUM/ALBUTEROL 0.5-3(2.5)MG/3ML NEB HHN SCH ×5 (03:53→20:11)
[2017-08-22] MEDS: CLOTRIMAZOLE/BETAMETHASONE 1/0.05% CREAM 15GM TOP SCH ×3 (05:46→23:59)
[2017-08-22 05:57] LABS: HEMATOCRIT. 27.6 % (42.0-52.0); HEMOGLOBIN. 9.3 g/dL (14.0-18.0); MEAN CORPUSCULAR HEMOGLOBIN 28.7 pg (28.0-32.0); MEAN CORPUSCULAR VOLUME 85.5 fL (80.0-94.0); MEAN PLATELET VOLUME 7.4 fl (7.4-10.4); PLATELET 317 x1000/uL (130-400); RED BLOOD CELL COUNT 3.23 mill/uL (4.7-6.1); RED CELL DISTRIBUTION WIDTH 15.7 % (11.6-14.6)
[2017-08-22] MEDS: BLOOD SUGAR DIAGNOSTIC STRIP TEST SCH ×4 (06:12→21:00)
[2017-08-22] MEDS: INSULIN LISPRO 100 UNITS/ML SUBCUT SCH ×3 (06:17→17:36)
[2017-08-22 07:43] LABS: NUCLEATED RED BLOOD CELLS 2 /100 WBC
[2017-08-22 07:44] LABS: PLATELET ESTIMATE NORMAL
[2017-08-22] MEDS: ASPIRIN 81MG TABLET NG SCH (09:00)
[2017-08-22] MEDS: AMIODARONE HCL 200 MG TABLET PO SCH ×2 (09:00→22:07)
[2017-08-22] MEDS: METHYLPREDNISOLONE SOD SUCC 40 MG/ML VIAL IV SCH ×2 (09:00→22:07)
[2017-08-22 09:07] LABS: BG BASE EXCESS -6.1 mmol/L (-2.0-2.0); BG CARBOXYHEMOGLOBIN 0.4 % (0.5-1.5); BG DEOXYHEMOGLOBIN 1.4 % (0.0-5.0); BG FRACTION INSPIRED OXYGEN 35; BG METHEMOGLOBIN 0.2 % (0.0-1.5); BG OXYGEN SATURATION 98.6 % (92.0-98.5); BG PCO2 36.1 mmHg (35.0-45.0); BG PO2 143.1 mmHg (75.0-100.0); BG SAMPLE SITE RIGHT RADIAL; BG TIDAL VOLUME(mL) 550 mL; BG TOTAL HEMOGLOBIN 10.5 g/dL (12.0-18.0); BG VENT MODE VENT - A/C; BG VENT RATE 18 set
[2017-08-22] MEDS: INSULIN GLARGINE UD 100 UNITS/ML SYR SUBCUT SCH ×2 (10:00→22:11)
[2017-08-22] MEDS: TAMSULOSIN HCL 0.4MG SR CAPSULE PO SCH (10:14)
[2017-08-22] MEDS: PANTOPRAZOLE SODIUM 40 MG/VIAL IV SCH (10:14)
[2017-08-22] MEDS ORDERED: HEPARIN SODIUM 1,000 UNIT/1ML VIAL IV NR (15:15)
[2017-08-22] MEDS: PHENYLEPHRINE 40 MG in DEXT 5% WATER 246 ML IV PRN (16:27)
[2017-08-22] MEDS ORDERED: PROPOFOL 10MG/ML 100ML 100 ML IV PRN (19:15)
[2017-08-22] MEDS: ATORVASTATIN CALCIUM 20MG TABLET PO SCH (22:07)
[2017-08-23] VITALS (42 sets, daily range): BP systolic 105–165; BP diastolic 51–102
[2017-08-23] MEDS: DILTIAZEM HCL 60MG TABLET PO SCH ×5 (00:05→23:39)
[2017-08-23] MEDS: INSULIN LISPRO 100 UNITS/ML SUBCUT SCH ×5 (00:06→23:32)
[2017-08-23] MEDS: IPRATROPIUM/ALBUTEROL 0.5-3(2.5)MG/3ML NEB HHN SCH ×6 (00:18→20:10)
[2017-08-23] MEDS: BLOOD SUGAR DIAGNOSTIC STRIP TEST SCH ×4 (06:45→21:00)
[2017-08-23] MEDS: CLOTRIMAZOLE/BETAMETHASONE 1/0.05% CREAM 15GM TOP SCH ×2 (09:00→22:04)
[2017-08-23 09:17] LABS: BG BASE EXCESS -5.5 mmol/L (-2.0-2.0); BG CARBOXYHEMOGLOBIN 0.7 % (0.5-1.5); BG DEOXYHEMOGLOBIN 1.5 % (0.0-5.0); BG FRACTION INSPIRED OXYGEN 35; BG HCO3 ACT 19.6 mmol/L (22.0-26.0); BG METHEMOGLOBIN 0.2 % (0.0-1.5); BG OXYGEN SATURATION 98.5 % (92.0-98.5); BG OXYHEMOGLOBIN 97.6 % (94.0-97.0); BG PCO2 36.5 mmHg (35.0-45.0); BG PH 7.348 (7.350-7.450); BG PO2 143.2 mmHg (75.0-100.0); BG SAMPLE SITE RIGHT RADIAL; BG TIDAL VOLUME(mL) 550 mL; BG TOTAL HEMOGLOBIN 9.9 g/dL (12.0-18.0); BG VENT MODE VENT - A/C; BG VENT RATE 18 set
[2017-08-23 09:23] LABS: HEMATOCRIT. 28.6 % (42.0-52.0); HEMOGLOBIN. 9.5 g/dL (14.0-18.0); MEAN CORPUSCULAR HEMOGLOBIN 28.2 pg (28.0-32.0); MEAN CORPUSCULAR VOLUME 84.9 fL (80.0-94.0); PLATELET 359 x1000/uL (130-400); RED BLOOD CELL COUNT 3.37 mill/uL (4.7-6.1); RED CELL DISTRIBUTION WIDTH 16.1 % (11.6-14.6)
[2017-08-23] MEDS ORDERED: LORAZEPAM 2MG/ML CPJ IV PRN (09:30)
[2017-08-23] MEDS: ASPIRIN 81MG TABLET NG SCH (09:58)
[2017-08-23] MEDS: PANTOPRAZOLE SODIUM 40 MG/VIAL IV SCH (09:58)
[2017-08-23] MEDS: TAMSULOSIN HCL 0.4MG SR CAPSULE PO SCH (09:59)
[2017-08-23] MEDS: INSULIN GLARGINE UD 100 UNITS/ML SYR SUBCUT SCH ×2 (10:00→22:04)
[2017-08-23] MEDS: AMIODARONE HCL 200 MG TABLET PO SCH ×2 (10:00→22:02)
[2017-08-23] MEDS: METHYLPREDNISOLONE SOD SUCC 40 MG/ML VIAL IV SCH ×2 (10:01→22:01)
[2017-08-23] MEDS: MORPHINE SULFATE 4 MG/ML CPJ (NOT FOR IM USE) IV PRN ×2 (10:21→22:43)
[2017-08-23 10:27] LABS: NUCLEATED RED BLOOD CELLS 1 /100 WBC; PLATELET ESTIMATE NORMAL
[2017-08-23] MEDS: ATORVASTATIN CALCIUM 20MG TABLET PO SCH (21:30)
[2017-08-24] VITALS (55 sets, daily range): BP systolic 83–185; BP diastolic 46–83
[2017-08-24] MEDS: IPRATROPIUM/ALBUTEROL 0.5-3(2.5)MG/3ML NEB HHN SCH ×5 (00:11→20:17)
[2017-08-24 05:30] LABS: HEMATOCRIT. 30.6 % (42.0-52.0); HEMOGLOBIN. 10.2 g/dL (14.0-18.0); MEAN CORPUSCULAR HEMOGLOBIN 28.6 pg (28.0-32.0); MEAN CORPUSCULAR VOLUME 85.5 fL (80.0-94.0); PLATELET 420 x1000/uL (130-400); RED BLOOD CELL COUNT 3.58 mill/uL (4.7-6.1); RED CELL DISTRIBUTION WIDTH 16.6 % (11.6-14.6)
[2017-08-24] MEDS: DILTIAZEM HCL 60MG TABLET PO SCH ×4 (05:36→23:06)
[2017-08-24] MEDS: BLOOD SUGAR DIAGNOSTIC STRIP TEST SCH ×3 (05:51→21:00)
[2017-08-24] MEDS: INSULIN LISPRO 100 UNITS/ML SUBCUT SCH ×4 (05:51→21:00)
[2017-08-24 07:21] LABS: BG BASE EXCESS -7.2 mmol/L (-2.0-2.0); BG CARBOXYHEMOGLOBIN 0.2 % (0.5-1.5); BG DEOXYHEMOGLOBIN 1.3 % (0.0-5.0); BG HCO3 ACT 18.5 mmol/L (22.0-26.0); BG METHEMOGLOBIN 0.3 % (0.0-1.5); BG OXYGEN SATURATION 98.7 % (92.0-98.5); BG OXYHEMOGLOBIN 98.2 % (94.0-97.0); BG PH 7.306 (7.350-7.450); BG PO2 149.5 mmHg (75.0-100.0); BG SAMPLE SITE RIGHT RADIAL; BG TIDAL VOLUME(mL) 550 mL; BG TOTAL HEMOGLOBIN 10.8 g/dL (12.0-18.0); BG VENT MODE VENT - SIMV; BG VENT RATE 8 set
[2017-08-24] MEDS: CLOTRIMAZOLE/BETAMETHASONE 1/0.05% CREAM 15GM TOP SCH ×2 (09:00→21:03)
[2017-08-24] MEDS: INSULIN GLARGINE UD 100 UNITS/ML SYR SUBCUT SCH ×3 (12:00→22:38)
[2017-08-24] MEDS: AMIODARONE HCL 200 MG TABLET PO SCH ×2 (13:43→20:58)
[2017-08-24] MEDS: METHYLPREDNISOLONE SOD SUCC 40 MG/ML VIAL IV SCH ×2 (13:43→20:58)
[2017-08-24] MEDS: PANTOPRAZOLE SODIUM 40 MG/VIAL IV SCH (13:43)
[2017-08-24] MEDS: ASPIRIN 81MG TABLET NG SCH (13:44)
[2017-08-24] MEDS: TAMSULOSIN HCL 0.4MG SR CAPSULE PO SCH (13:44)
[2017-08-24 17:01] LABS: BG BASE EXCESS -1.9 mmol/L (-2.0-2.0); BG CARBOXYHEMOGLOBIN 0.2 % (0.5-1.5); BG CPAP (cmH2O) 0 cm(H2O); BG DEOXYHEMOGLOBIN 1.5 % (0.0-5.0); BG HCO3 ACT 22.1 mmol/L (22.0-26.0); BG METHEMOGLOBIN 0.2 % (0.0-1.5); BG OXYGEN SATURATION 98.5 % (92.0-98.5); BG OXYHEMOGLOBIN 98.1 % (94.0-97.0); BG PCO2 34.7 mmHg (35.0-45.0); BG PH 7.421 (7.350-7.450); BG PO2 135.1 mmHg (75.0-100.0); BG SAMPLE SITE RIGHT RADIAL; BG TOTAL HEMOGLOBIN 11.1 g/dL (12.0-18.0); BG VENT MODE VENT - CPAP
[2017-08-24] MEDS: ATORVASTATIN CALCIUM 20MG TABLET PO SCH (20:58)
[2017-08-25] VITALS (43 sets, daily range): BP systolic 82–148; BP diastolic 44–110
[2017-08-25] MEDS: IPRATROPIUM/ALBUTEROL 0.5-3(2.5)MG/3ML NEB HHN SCH ×7 (00:12→23:49)
[2017-08-25 00:36] LABS: PLATELET ESTIMATE NORMAL
[2017-08-25 05:39] LABS: HEMATOCRIT. 31.2 % (42.0-52.0); HEMOGLOBIN. 10.4 g/dL (14.0-18.0); MEAN CORPUSCULAR HEMOGLOBIN 28.8 pg (28.0-32.0); MEAN CORPUSCULAR VOLUME 86.6 fL (80.0-94.0); PLATELET 396 x1000/uL (130-400); RED BLOOD CELL COUNT 3.61 mill/uL (4.7-6.1); RED CELL DISTRIBUTION WIDTH 16.7 % (11.6-14.6)
[2017-08-25] MEDS: BLOOD SUGAR DIAGNOSTIC STRIP TEST SCH ×4 (05:50→20:39)
[2017-08-25] MEDS: DILTIAZEM HCL 60MG TABLET PO SCH ×4 (05:50→23:15)
[2017-08-25] MEDS: INSULIN LISPRO 100 UNITS/ML SUBCUT SCH ×4 (05:51→20:46)
[2017-08-25] MEDS: CLOTRIMAZOLE/BETAMETHASONE 1/0.05% CREAM 15GM TOP SCH ×2 (09:00→20:39)
[2017-08-25] MEDS: PANTOPRAZOLE SODIUM 40 MG/VIAL IV SCH (10:34)
[2017-08-25] MEDS: TAMSULOSIN HCL 0.4MG SR CAPSULE PO SCH (10:34)
[2017-08-25] MEDS: METHYLPREDNISOLONE SOD SUCC 40 MG/ML VIAL IV SCH ×2 (10:34→20:39)
[2017-08-25] MEDS: ASPIRIN 81MG TABLET NG SCH (10:35)
[2017-08-25] MEDS: AMIODARONE HCL 200 MG TABLET PO SCH ×2 (10:35→20:39)
[2017-08-25] MEDS: INSULIN GLARGINE UD 100 UNITS/ML SYR SUBCUT SCH ×2 (10:48→21:22)
[2017-08-25 11:18] LABS: NUCLEATED RED BLOOD CELLS 1 /100 WBC
[2017-08-25 11:19] LABS: PLATELET ESTIMATE NORMAL
[2017-08-25] MEDS: ATORVASTATIN CALCIUM 20MG TABLET PO SCH (20:39)
[2017-08-26] VITALS (52 sets, daily range): BP systolic 80–149; BP diastolic 41–87
[2017-08-26] MEDS: IPRATROPIUM/ALBUTEROL 0.5-3(2.5)MG/3ML NEB HHN SCH ×5 (03:43→21:23)
[2017-08-26] MEDS: INSULIN LISPRO 100 UNITS/ML SUBCUT SCH ×4 (06:25→22:38)
[2017-08-26] MEDS: BLOOD SUGAR DIAGNOSTIC STRIP TEST SCH ×4 (06:25→21:00)
[2017-08-26] MEDS: DILTIAZEM HCL 60MG TABLET PO SCH ×4 (06:25→23:53)
[2017-08-26] MEDS ORDERED: HEPARIN SODIUM 1,000 UNIT/1ML VIAL IV NR (09:00)
[2017-08-26] MEDS: PANTOPRAZOLE SODIUM 40 MG/VIAL IV SCH (11:16)
[2017-08-26] MEDS: ASPIRIN 81MG TABLET NG SCH (11:16)
[2017-08-26] MEDS: METHYLPREDNISOLONE SOD SUCC 40 MG/ML VIAL IV SCH ×2 (11:16→22:13)
[2017-08-26] MEDS: TAMSULOSIN HCL 0.4MG SR CAPSULE PO SCH (11:17)
[2017-08-26] MEDS: AMIODARONE HCL 200 MG TABLET PO SCH ×2 (11:17→22:13)
[2017-08-26] MEDS: INSULIN GLARGINE UD 100 UNITS/ML SYR SUBCUT SCH (11:18)
[2017-08-26] MEDS: CLOTRIMAZOLE/BETAMETHASONE 1/0.05% CREAM 15GM TOP SCH ×2 (11:18→22:14)
[2017-08-26] MEDS: NYSTATIN 100,000 UNITS/ML 5ML UDC SSW SCH ×2 (18:25→23:53)
[2017-08-26] MEDS: ATORVASTATIN CALCIUM 20MG TABLET PO SCH (22:13)
[2017-08-27] VITALS (13 sets, daily range): BP systolic 111–168; BP diastolic 53–76
[2017-08-27] MEDS: IPRATROPIUM/ALBUTEROL 0.5-3(2.5)MG/3ML NEB HHN SCH ×6 (01:29→21:01)
[2017-08-27] MEDS: DILTIAZEM HCL 60MG TABLET PO SCH ×3 (05:39→17:53)
[2017-08-27] MEDS: NYSTATIN 100,000 UNITS/ML 5ML UDC SSW SCH ×3 (05:39→17:56)
[2017-08-27] MEDS: BLOOD SUGAR DIAGNOSTIC STRIP TEST SCH ×4 (07:30→21:00)
[2017-08-27] MEDS: INSULIN LISPRO 100 UNITS/ML SUBCUT SCH ×4 (08:00→21:00)
[2017-08-27] MEDS: ASPIRIN 81MG TABLET NG SCH (09:13)
[2017-08-27] MEDS: TAMSULOSIN HCL 0.4MG SR CAPSULE PO SCH (09:22)
[2017-08-27] MEDS: AMIODARONE HCL 200 MG TABLET PO SCH ×2 (09:22→20:17)
[2017-08-27] MEDS: CLOTRIMAZOLE/BETAMETHASONE 1/0.05% CREAM 15GM TOP SCH ×2 (09:23→20:18)
[2017-08-27] MEDS: PANTOPRAZOLE SODIUM 40 MG/VIAL IV SCH (09:23)
[2017-08-27] MEDS: METHYLPREDNISOLONE SOD SUCC 40 MG/ML VIAL IV SCH (09:23)
[2017-08-27] MEDS: ATORVASTATIN CALCIUM 20MG TABLET PO SCH (20:17)
[2017-08-28] VITALS (12 sets, daily range): BP systolic 107–159; BP diastolic 48–74
[2017-08-28] MEDS: DILTIAZEM HCL 60MG TABLET PO SCH ×4 (00:36→17:33)
[2017-08-28] MEDS: NYSTATIN 100,000 UNITS/ML 5ML UDC SSW SCH ×4 (00:39→17:33)
[2017-08-28] MEDS: IPRATROPIUM/ALBUTEROL 0.5-3(2.5)MG/3ML NEB HHN SCH ×6 (00:48→21:52)
[2017-08-28 06:04] LABS: HEMATOCRIT. 25.4 % (42.0-52.0); HEMOGLOBIN. 8.4 g/dL (14.0-18.0); MEAN CORPUSCULAR HEMOGLOBIN 28.5 pg (28.0-32.0); MEAN CORPUSCULAR VOLUME 86.5 fL (80.0-94.0); PLATELET 340 x1000/uL (130-400); RED BLOOD CELL COUNT 2.94 mill/uL (4.7-6.1); RED CELL DISTRIBUTION WIDTH 17.4 % (11.6-14.6)
[2017-08-28] MEDS: BLOOD SUGAR DIAGNOSTIC STRIP TEST SCH ×4 (07:30→20:51)
[2017-08-28] MEDS: INSULIN LISPRO 100 UNITS/ML SUBCUT SCH ×4 (08:55→20:50)
[2017-08-28] MEDS: ASPIRIN 81MG TABLET NG SCH (09:00)
[2017-08-28] MEDS: PANTOPRAZOLE SODIUM 40 MG/VIAL IV SCH (09:00)
[2017-08-28] MEDS: TAMSULOSIN HCL 0.4MG SR CAPSULE PO SCH (09:00)
[2017-08-28] MEDS: AMIODARONE HCL 200 MG TABLET PO SCH ×2 (09:00→20:08)
[2017-08-28] MEDS: PREDNISONE 20MG TABLET PO SCH (09:00)
[2017-08-28] MEDS ORDERED: HEPARIN SODIUM 1,000 UNIT/1ML VIAL IV NR (09:45)
[2017-08-28] MEDS: CLOTRIMAZOLE/BETAMETHASONE 1/0.05% CREAM 15GM TOP SCH ×2 (09:51→20:08)
[2017-08-28 16:04] LABS: HEMATOCRIT 24.6 % (42.0-52.0); HEMOGLOBIN 8.1 g/dL (14.0-18.0)
[2017-08-28 17:55] LABS: PLATELET ESTIMATE NORMAL
[2017-08-28] MEDS: ATORVASTATIN CALCIUM 20MG TABLET PO SCH (20:08)
[2017-08-29] VITALS (9 sets, daily range): BP systolic 107–154; BP diastolic 39–72
[2017-08-29] MEDS: NYSTATIN 100,000 UNITS/ML 5ML UDC SSW SCH ×4 (00:01→17:06)
[2017-08-29] MEDS: DILTIAZEM HCL 60MG TABLET PO SCH ×4 (00:02→17:07)
[2017-08-29] MEDS: IPRATROPIUM/ALBUTEROL 0.5-3(2.5)MG/3ML NEB HHN SCH ×5 (00:18→16:10)
[2017-08-29 06:21] LABS: HEMATOCRIT. 23.9 % (42.0-52.0); HEMOGLOBIN. 7.8 g/dL (14.0-18.0); MEAN CORPUSCULAR HEMOGLOBIN 28.3 pg (28.0-32.0); MEAN CORPUSCULAR VOLUME 86.6 fL (80.0-94.0); MEAN PLATELET VOLUME 6.9 fl (7.4-10.4); PLATELET 342 x1000/uL (130-400); RED BLOOD CELL COUNT 2.76 mill/uL (4.7-6.1); RED CELL DISTRIBUTION WIDTH 16.9 % (11.6-14.6)
[2017-08-29] MEDS: INSULIN LISPRO 100 UNITS/ML SUBCUT SCH ×3 (07:54→17:15)
[2017-08-29] MEDS: BLOOD SUGAR DIAGNOSTIC STRIP TEST SCH ×3 (07:54→16:57)
[2017-08-29] MEDS: ASPIRIN 81MG TABLET NG SCH (09:00)
[2017-08-29] MEDS: PANTOPRAZOLE SODIUM 40 MG/VIAL IV SCH (09:14)
[2017-08-29] MEDS: AMIODARONE HCL 200 MG TABLET PO SCH (09:14)
[2017-08-29] MEDS: CLOTRIMAZOLE/BETAMETHASONE 1/0.05% CREAM 15GM TOP SCH (09:15)
[2017-08-29] MEDS: TAMSULOSIN HCL 0.4MG SR CAPSULE PO SCH (09:15)
[2017-08-29] MEDS: PREDNISONE 20MG TABLET PO SCH (09:21)
[2017-08-29 16:56] LABS: PLATELET ESTIMATE NORMAL
[2017-08-29] MEDS ORDERED: DOCUSATE SODIUM 250MG CAPSULE PO SCH (18:30)
== END 2017-08-29 18:50 | DRG 870 ==
LOC: ER 10:51 → EDBEDREQ 12:11 → 5EST 12:25 → EDBEDREQSVC 12:34 → EDBEDREQ 12:34 → ENRESERV 13:26 → MICUNO 08-13 10:55 → MICUSO 08-20 10:15 → 5EST 08-26 20:15
PROVIDERS: ADMIT Hospitalist; ATTEND Hospitalist
PROC: 5A09357 Assistance with Respiratory Ventilation, Less than 24 Consecutive Hours, Continuous Positive Airway Pressure (ICD-10-PCS; 2017-08-06)
PROC: 5A09357 Assistance with Respiratory Ventilation, Less than 24 Consecutive Hours, Continuous Positive Airway Pressure (ICD-10-PCS; 2017-08-07)
PROC: 5A09357 Assistance with Respiratory Ventilation, Less than 24 Consecutive Hours, Continuous Positive Airway Pressure (ICD-10-PCS; 2017-08-08)
PROC: 5A09357 Assistance with Respiratory Ventilation, Less than 24 Consecutive Hours, Continuous Positive Airway Pressure (ICD-10-PCS; 2017-08-09)
PROC: 5A09357 Assistance with Respiratory Ventilation, Less than 24 Consecutive Hours, Continuous Positive Airway Pressure (ICD-10-PCS; 2017-08-11)
PROC: 5A09357 Assistance with Respiratory Ventilation, Less than 24 Consecutive Hours, Continuous Positive Airway Pressure (ICD-10-PCS; 2017-08-12)
PROC: 5A1955Z Respiratory Ventilation, Greater than 96 Consecutive Hours (ICD-10-PCS; principal; 2017-08-13)
PROC: 0BH17EZ Insertion of Endotracheal Airway into Trachea, Via Natural or Artificial Opening (ICD-10-PCS; 2017-08-13)
PROC: 02HV33Z Insertion of Infusion Device into Superior Vena Cava, Percutaneous Approach (ICD-10-PCS; 2017-08-14)
PROC: B548ZZA Ultrasonography of Superior Vena Cava, Guidance (ICD-10-PCS; 2017-08-14)
PROC: 30233N1 Transfusion of Nonautologous Red Blood Cells into Peripheral Vein, Percutaneous Approach (ICD-10-PCS; 2017-08-17)
DX: A41.9 Sepsis, unspecified organism (principal); I21.4 Non-ST elevation (NSTEMI) myocardial infarction; J69.0 Pneumonitis due to inhalation of food and vomit; J96.21 Acute and chronic respiratory failure with hypoxia; E43 Unspecified severe protein-calorie malnutrition; N17.0 Acute kidney failure with tubular necrosis; D68.59 Other primary thrombophilia; R65.21 Severe sepsis with septic shock; E11.22 Type 2 diabetes mellitus with diabetic chronic kidney disease; I50.43 Acute on chronic combined systolic (congestive) and diastolic (congestive) heart failure; B37.0 Candidal stomatitis; I13.0 Hypertensive heart and chronic kidney disease with heart failure and stage 1 through stage 4 chronic kidney disease, or unspecified chronic kidney disease; N39.0 Urinary tract infection, site not specified; I48.92 Unspecified atrial flutter; I48.0 Paroxysmal atrial fibrillation; N18.9 Chronic kidney disease, unspecified; E11.65 Type 2 diabetes mellitus with hyperglycemia; D63.8 Anemia in other chronic diseases classified elsewhere; E78.00 Pure hypercholesterolemia, unspecified; E87.5 Hyperkalemia; I25.10 Atherosclerotic heart disease of native coronary artery without angina pectoris; K57.90 Diverticulosis of intestine, part unspecified, without perforation or abscess without bleeding; K64.8 Other hemorrhoids; N40.0 Benign prostatic hyperplasia without lower urinary tract symptoms; Z60.2 Problems related to living alone; D64.9 Anemia, unspecified; B95.2 Enterococcus as the cause of diseases classified elsewhere; Z16.21 Resistance to vancomycin; T38.0X5A Adverse effect of glucocorticoids and synthetic analogues, initial encounter; Z99.2 Dependence on renal dialysis; Z87.891 Personal history of nicotine dependence; Z87.01 Personal history of pneumonia (recurrent); Z83.3 Family history of diabetes mellitus; Z82.49 Family history of ischemic heart disease and other diseases of the circulatory system; Z79.899 Other long term (current) drug therapy; Z99.81 Dependence on supplemental oxygen; Y92.89 Other specified places as the place of occurrence of the external cause; Z68.26 Body mass index [BMI] 26.0-26.9, adult; L30.4 Erythema intertrigo
CPT/HCPCS: 36415; 36556; 36600; 71045; 71250; 76770; 76937; 80048; 80053; 80061; 80076; 80305; 81003; 82270; 82375; 82550; 82805; 82962; 83520; 83690; 83735; 83880; 84145; 84478; 84484; 85014; 85018; 85025; 85379; 85610; 86038; 86256; 86635; 86698; 86850; 86900; 86920; 87040; 87070; 87086; 87186; 87899; 92610; 93005; 93306; 93970; 94002; 94003; 94640; 94660; 94667; 96374; 97110; 97162; 97164; 97166; 97530; 99291; A6261; C1752; C9113; J0282; J0692; J1160; J1642; J1644; J1650; J1815; J1940; J1956; J2060; J2270; J2370; J2543; J2704; J2920; J2930; J3010; J3490; J7030; J7040; J7050; J7060; J7512; J7608; J7620; P9016; P9047; A4315

== ENCOUNTER 2017-08-29 18:55 | Inpatient (IN) | payer MEDICARE, BC ==
[~2017-08-29] VITALS: Ht 170.2 cm; Wt 75.3 kg
[2017-08-29 20:00] VITALS: BP 122/49
[2017-08-29] MEDS ORDERED: ACETAMINOPHEN 650MG/20.3ML UDC PO PRN (20:15)
[2017-08-29] MEDS ORDERED: IPRATROPIUM/ALBUTEROL 0.5-3(2.5)MG/3ML NEB HHN PRN (20:15)
[2017-08-29] MEDS ORDERED: INSULIN LISPRO 100 UNITS/ML SUBCUT PRN (20:15)
[2017-08-29] MEDS ORDERED: CLONIDINE 0.2MG TABLET PO PRN (20:15)
[2017-08-29] MEDS ORDERED: DOCUSATE SODIUM 100MG CAPSULE PO PRN (20:15)
[2017-08-29] MEDS ORDERED: CLONIDINE 0.1MG TABLET PO PRN (20:15)
[2017-08-29] MEDS: IPRATROPIUM/ALBUTEROL 0.5-3(2.5)MG/3ML NEB HHN SCH (21:31)
[2017-08-29] MEDS: BLOOD SUGAR DIAGNOSTIC STRIP TEST SCH (21:53)
[2017-08-29] MEDS: CLOTRIMAZOLE/BETAMETHASONE 1/0.05% CREAM 15GM TOP SCH (21:56)
[2017-08-29] MEDS: ATORVASTATIN CALCIUM 20MG TABLET PO SCH (21:59)
[2017-08-29 22:00] VITALS: BP 138/54
[2017-08-29] MEDS: INSULIN LISPRO 100 UNITS/ML SUBCUT SCH (22:00)
[2017-08-29] MEDS: INSULIN GLARGINE UD 100 UNITS/ML SYR SUBCUT SCH (22:01)
[2017-08-29] MEDS: AMIODARONE HCL 200 MG TABLET PO SCH (22:02)
[2017-08-30] MEDS: NYSTATIN 100,000 UNITS/ML 5ML UDC SSW SCH ×4 (00:53→17:32)
[2017-08-30] MEDS: IPRATROPIUM/ALBUTEROL 0.5-3(2.5)MG/3ML NEB HHN SCH ×5 (01:19→20:57)
[2017-08-30] MEDS: BLOOD SUGAR DIAGNOSTIC STRIP TEST SCH ×4 (05:50→21:55)
[2017-08-30] MEDS: DILTIAZEM HCL 60MG TABLET PO SCH ×4 (06:29→18:00)
[2017-08-30] MEDS: INSULIN LISPRO 100 UNITS/ML SUBCUT SCH ×4 (06:30→22:02)
[2017-08-30 08:00] VITALS: BP 139/55
[2017-08-30 08:14] LABS: HEMATOCRIT. 22.7 % (42.0-52.0); HEMOGLOBIN. 7.4 g/dL (14.0-18.0); MEAN CORPUSCULAR HEMOGLOBIN 28.4 pg (28.0-32.0); MEAN CORPUSCULAR VOLUME 87.3 fL (80.0-94.0); PLATELET 276 x1000/uL (130-400); RED BLOOD CELL COUNT 2.59 mill/uL (4.7-6.1); RED CELL DISTRIBUTION WIDTH 17.4 % (11.6-14.6)
[2017-08-30] MEDS ORDERED: FUROSEMIDE 40MG/4ML VIAL IVP SCH (08:45)
[2017-08-30] MEDS: PANTOPRAZOLE 40MG DR TABLET PO SCH (08:55)
[2017-08-30] MEDS: TAMSULOSIN HCL 0.4MG SR CAPSULE PO SCH (08:56)
[2017-08-30] MEDS: AMIODARONE HCL 200 MG TABLET PO SCH ×2 (08:56→21:00)
[2017-08-30] MEDS: CLOTRIMAZOLE/BETAMETHASONE 1/0.05% CREAM 15GM TOP SCH ×2 (08:57→22:03)
[2017-08-30] MEDS ORDERED: ASPIRIN 81MG TABLET PO SCH (09:00)
[2017-08-30] MEDS ORDERED: PREDNISONE 20MG TABLET PO SCH (09:00)
[2017-08-30] MEDS: INSULIN GLARGINE UD 100 UNITS/ML SYR SUBCUT SCH ×2 (11:46→22:00)
[2017-08-30 17:02] LABS: PLATELET ESTIMATE NORMAL
[2017-08-30 17:51] LABS: HEMATOCRIT 21.3 % (42.0-52.0); HEMOGLOBIN 7.2 g/dL (14.0-18.0)
[2017-08-30 20:00] VITALS: BP 140/65
[2017-08-30] MEDS: ATORVASTATIN CALCIUM 20MG TABLET PO SCH (21:59)
[2017-08-30] MEDS: GUAIFENESIN 600MG ER TABLET PO SCH (21:59)
[2017-08-31] MEDS: IPRATROPIUM/ALBUTEROL 0.5-3(2.5)MG/3ML NEB HHN SCH ×6 (00:04→21:53)
[2017-08-31] MEDS: NYSTATIN 100,000 UNITS/ML 5ML UDC SSW SCH ×5 (06:22→23:12)
[2017-08-31] MEDS: DILTIAZEM HCL 60MG TABLET PO SCH ×5 (06:22→23:14)
[2017-08-31] MEDS: BLOOD SUGAR DIAGNOSTIC STRIP TEST SCH ×4 (06:22→21:49)
[2017-08-31] MEDS: INSULIN LISPRO 100 UNITS/ML SUBCUT SCH ×4 (07:00→21:49)
[2017-08-31 07:22] LABS: HEMATOCRIT. 21.6 % (42.0-52.0); HEMOGLOBIN. 7.1 g/dL (14.0-18.0); MEAN CORPUSCULAR HEMOGLOBIN 28.4 pg (28.0-32.0); MEAN CORPUSCULAR VOLUME 85.9 fL (80.0-94.0); MEAN PLATELET VOLUME 6.7 fl (7.4-10.4); PLATELET 247 x1000/uL (130-400); RED BLOOD CELL COUNT 2.51 mill/uL (4.7-6.1); RED CELL DISTRIBUTION WIDTH 17.7 % (11.6-14.6)
[2017-08-31 08:06] VITALS: BP 133/63
[2017-08-31] MEDS: TAMSULOSIN HCL 0.4MG SR CAPSULE PO SCH (08:36)
[2017-08-31] MEDS: GUAIFENESIN 600MG ER TABLET PO SCH ×2 (08:37→20:24)
[2017-08-31] MEDS: PANTOPRAZOLE 40MG DR TABLET PO SCH (08:37)
[2017-08-31] MEDS: CLOTRIMAZOLE/BETAMETHASONE 1/0.05% CREAM 15GM TOP SCH ×2 (08:37→20:24)
[2017-08-31] MEDS: AMIODARONE HCL 200 MG TABLET PO SCH ×2 (08:37→20:24)
[2017-08-31] MEDS ORDERED: CLOTRIMAZOLE/BETAMETHASONE 1/0.05% CREAM 15GM TOP SCH (09:00)
[2017-08-31 09:31] LABS: VITAMIN B12 SERUM >2000 pg/mL pg/mL (211-911)
[2017-08-31] MEDS: INSULIN GLARGINE UD 100 UNITS/ML SYR SUBCUT SCH ×2 (10:35→21:48)
[2017-08-31] MEDS: DEXTROSE 50% WATER 50ML SYRINGE IV PRN (15:31)
[2017-08-31 17:50] LABS: HEMATOCRIT 23.8 % (42.0-52.0); HEMOGLOBIN 8.1 g/dL (14.0-18.0)
[2017-08-31] MEDS ORDERED: FUROSEMIDE 40MG TABLET PO NR ×2 (18:15→22:00)
[2017-08-31 20:00] VITALS: BP 118/47
[2017-08-31] MEDS: ATORVASTATIN CALCIUM 20MG TABLET PO SCH (20:24)
[2017-08-31 23:38] LABS: BG BASE EXCESS 1.2 mmol/L (-2.0-2.0); BG CARBOXYHEMOGLOBIN 0.2 % (0.5-1.5); BG DEOXYHEMOGLOBIN 14.1 % (0.0-5.0); BG FRACTION INSPIRED OXYGEN 36; BG HCO3 ACT 24.4 mmol/L (22.0-26.0); BG METHEMOGLOBIN 0.5 % (0.0-1.5); BG OXYGEN SATURATION 85.8 % (92.0-98.5); BG OXYHEMOGLOBIN 85.2 % (94.0-97.0); BG PCO2 32.8 mmHg (35.0-45.0); BG PH 7.489 (7.350-7.450); BG PO2 47.9 mmHg (75.0-100.0); BG SAMPLE SITE A-LINE; BG VENT MODE NASAL CANNULA
[2017-09-01] MEDS ORDERED: LEVOFLOXACIN 500MG PREMIX 100 ML IV SCH (01:00)
[2017-09-01] MEDS: IPRATROPIUM/ALBUTEROL 0.5-3(2.5)MG/3ML NEB HHN SCH ×4 (01:40→13:23)
[2017-09-01] MEDS: DEXTROSE 50% WATER 50ML SYRINGE IV PRN (04:07)
[2017-09-01] MEDS: NYSTATIN 100,000 UNITS/ML 5ML UDC SSW SCH (05:58)
[2017-09-01] MEDS: DILTIAZEM HCL 60MG TABLET PO SCH (05:58)
[2017-09-01] MEDS: INSULIN LISPRO 100 UNITS/ML SUBCUT SCH (06:08)
[2017-09-01] MEDS: BLOOD SUGAR DIAGNOSTIC STRIP TEST SCH ×2 (06:08→11:43)
[2017-09-01 08:00] VITALS: BP 126/59
[2017-09-01] MEDS: INSULIN GLARGINE UD 100 UNITS/ML SYR SUBCUT SCH (10:00)
[2017-09-01] MEDS: AMIODARONE HCL 200 MG TABLET PO SCH (11:05)
[2017-09-01] MEDS: TAMSULOSIN HCL 0.4MG SR CAPSULE PO SCH (11:05)
[2017-09-01] MEDS: PANTOPRAZOLE 40MG DR TABLET PO SCH (11:05)
[2017-09-01] MEDS: GUAIFENESIN 600MG ER TABLET PO SCH (11:05)
[2017-09-01] MEDS: CLOTRIMAZOLE/BETAMETHASONE 1/0.05% CREAM 15GM TOP SCH (11:14)
[2017-09-01 11:50] LABS: BG BASE EXCESS 0.1 mmol/L (-2.0-2.0); BG CARBOXYHEMOGLOBIN 0.4 % (0.5-1.5); BG FRACTION INSPIRED OXYGEN 40; BG HCO3 ACT 23.3 mmol/L (22.0-26.0); BG METHEMOGLOBIN 0.3 % (0.0-1.5); BG OXYGEN SATURATION 81.9 % (92.0-98.5); BG OXYHEMOGLOBIN 81.3 % (94.0-97.0); BG PCO2 32.2 mmHg (35.0-45.0); BG PH 7.478 (7.350-7.450); BG PO2 44.1 mmHg (75.0-100.0); BG SAMPLE SITE RIGHT RADIAL; BG VENT MODE MASK - SIMPLE
[2017-09-01 12:43] VITALS: BP 126/59
[2017-09-01 15:41] LABS: PLATELET ESTIMATE NORMAL
[2017-09-03] MEDS ORDERED: LEVOFLOXACIN 500MG PREMIX 100 ML IV SCH (01:00)
== END 2017-09-01 13:26 | disposition short-term general hospital (02) | DRG 73 ==
PROVIDERS: ADMIT Psychiatry & Neurology Neurology; ATTEND Hospitalist
PROC: 30233N1 Transfusion of Nonautologous Red Blood Cells into Peripheral Vein, Percutaneous Approach (ICD-10-PCS; principal; 2017-08-31)
PROC: 5A1D70Z Performance of Urinary Filtration, Intermittent, Less than 6 Hours Per Day (ICD-10-PCS; 2017-08-31)
DX: G62.81 Critical illness polyneuropathy (principal); J18.9 Pneumonia, unspecified organism; I21.4 Non-ST elevation (NSTEMI) myocardial infarction; J96.01 Acute respiratory failure with hypoxia; G72.81 Critical illness myopathy; E43 Unspecified severe protein-calorie malnutrition; A41.9 Sepsis, unspecified organism; N17.0 Acute kidney failure with tubular necrosis; L89.159 Pressure ulcer of sacral region, unspecified stage; R65.21 Severe sepsis with septic shock; I50.43 Acute on chronic combined systolic (congestive) and diastolic (congestive) heart failure; J80 Acute respiratory distress syndrome; B37.0 Candidal stomatitis; I13.0 Hypertensive heart and chronic kidney disease with heart failure and stage 1 through stage 4 chronic kidney disease, or unspecified chronic kidney disease; I48.92 Unspecified atrial flutter; N39.0 Urinary tract infection, site not specified; E87.1 Hypo-osmolality and hyponatremia; E11.22 Type 2 diabetes mellitus with diabetic chronic kidney disease; D72.829 Elevated white blood cell count, unspecified; N40.0 Benign prostatic hyperplasia without lower urinary tract symptoms; N18.9 Chronic kidney disease, unspecified; R53.81 Other malaise; R62.7 Adult failure to thrive; R26.9 Unspecified abnormalities of gait and mobility; M79.609 Pain in unspecified limb; I25.10 Atherosclerotic heart disease of native coronary artery without angina pectoris; E78.5 Hyperlipidemia, unspecified; E11.42 Type 2 diabetes mellitus with diabetic polyneuropathy; I48.0 Paroxysmal atrial fibrillation; E11.65 Type 2 diabetes mellitus with hyperglycemia; T38.0X5A Adverse effect of glucocorticoids and synthetic analogues, initial encounter; E87.5 Hyperkalemia; L30.4 Erythema intertrigo; K64.8 Other hemorrhoids; K57.90 Diverticulosis of intestine, part unspecified, without perforation or abscess without bleeding; E87.70 Fluid overload, unspecified; D63.8 Anemia in other chronic diseases classified elsewhere; Z87.01 Personal history of pneumonia (recurrent); Z87.891 Personal history of nicotine dependence; Z99.2 Dependence on renal dialysis; Y92.89 Other specified places as the place of occurrence of the external cause
CPT/HCPCS: 36415; 36600; 71045; 72146; 72148; 80048; 82270; 82375; 82607; 82805; 82962; 83540; 83550; 83735; 85014; 85018; 85025; 85044; 86850; 86900; 86920; 87070; 92523; 92610; 93005; 94640; 94660; 97110; 97163; 97167; 97530; 97535; A6261; G0515; J1815; J1940; J1956; J7030; J7040; J7050; J7512; J7620; P9016; A5200

== ENCOUNTER 2017-09-01 13:50 | Inpatient (IN) | payer MEDICARE, BC ==
[~2017-09-01] VITALS: Ht 170.2 cm; Wt 81.4 kg
[2017-09-01] VITALS (31 sets, daily range): BP systolic 98–153; BP diastolic 31–70
[2017-09-01] MEDS ORDERED: IPRATROPIUM/ALBUTEROL 0.5-3(2.5)MG/3ML NEB HHN PRN ×2 (14:00→18:15)
[2017-09-01] MEDS ORDERED: IPRATROPIUM BROMIDE (0.02%) 0.5MG/2.5ML NEB HHN PRN (14:00)
[2017-09-01] MEDS ORDERED: DILTIAZEM HCL 125 MG in DEXT 5% WATER 100 ML IV PRN (15:30)
[2017-09-01 15:45] LABS: BG BASE EXCESS -2.9 mmol/L (-2.0-2.0); BG DEOXYHEMOGLOBIN 4.9 % (0.0-5.0); BG FRACTION INSPIRED OXYGEN 100; BG HCO3 ACT 20.6 mmol/L (22.0-26.0); BG METHEMOGLOBIN 0.3 % (0.0-1.5); BG OXYGEN SATURATION 95.1 % (92.0-98.5); BG OXYHEMOGLOBIN 94.8 % (94.0-97.0); BG PH 7.441 (7.350-7.450); BG PO2 79.8 mmHg (75.0-100.0); BG SAMPLE SITE RIGHT RADIAL; BG TOTAL HEMOGLOBIN 8.7 g/dL (12.0-18.0); BG VENT MODE MASK - NRB
[2017-09-01 16:45] LABS: CHLORIDE 100 mEq/L (98-107)
[2017-09-01 16:50] LABS: HEMATOCRIT. 23.8 % (42.0-52.0); HEMOGLOBIN. 7.9 g/dL (14.0-18.0); MEAN CORPUSCULAR HEMOGLOBIN 29.4 pg (28.0-32.0); MEAN CORPUSCULAR VOLUME 88.5 fL (80.0-94.0); MEAN PLATELET VOLUME 7.2 fl (7.4-10.4); PLATELET 184 x1000/uL (130-400); RED BLOOD CELL COUNT 2.69 mill/uL (4.7-6.1); RED CELL DISTRIBUTION WIDTH 17.4 % (11.6-14.6)
[2017-09-01] MEDS ORDERED: CLONIDINE 0.1MG TABLET PO PRN (18:15)
[2017-09-01] MEDS ORDERED: ACETAMINOPHEN 650MG/20.3ML UDC PO PRN (18:15)
[2017-09-01] MEDS: IPRATROPIUM/ALBUTEROL 0.5-3(2.5)MG/3ML NEB HHN SCH (20:31)
[2017-09-01 20:51] LABS: NUCLEATED RED BLOOD CELLS 2 /100 WBC
[2017-09-01 20:52] LABS: PLATELET ESTIMATE NORMAL
[2017-09-01] MEDS: BLOOD SUGAR DIAGNOSTIC STRIP TEST SCH (21:00)
[2017-09-01] MEDS: INSULIN LISPRO 100 UNITS/ML SUBCUT SCH (21:00)
[2017-09-01] MEDS: INSULIN GLARGINE UD 100 UNITS/ML SYR SUBCUT SCH (21:56)
[2017-09-01] MEDS: GUAIFENESIN 600MG ER TABLET PO SCH (21:56)
[2017-09-01] MEDS: AMIODARONE HCL 200 MG TABLET PO SCH (21:56)
[2017-09-01] MEDS: ATORVASTATIN CALCIUM 20MG TABLET PO SCH (21:56)
[2017-09-02] VITALS (61 sets, daily range): BP systolic 83–163; BP diastolic 45–81
[2017-09-02] MEDS: ACETYLCYSTEINE 100MG/ML 10% VIAL 4ML INH SCH ×2 (00:05→16:09)
[2017-09-02] MEDS: DILTIAZEM HCL 60MG TABLET PO SCH ×4 (00:26→18:00)
[2017-09-02] MEDS: NYSTATIN 100,000 UNITS/ML 5ML UDC SSW SCH ×4 (00:27→18:00)
[2017-09-02] MEDS: IPRATROPIUM/ALBUTEROL 0.5-3(2.5)MG/3ML NEB HHN SCH ×7 (00:45→23:49)
[2017-09-02] MEDS: DEXTROSE 50% WATER 50ML SYRINGE IV PRN ×3 (04:30→16:34)
[2017-09-02 05:29] LABS: HEMATOCRIT. 22.3 % (42.0-52.0); HEMOGLOBIN. 7.4 g/dL (14.0-18.0); MEAN CORPUSCULAR HEMOGLOBIN 29.4 pg (28.0-32.0); MEAN CORPUSCULAR VOLUME 88.4 fL (80.0-94.0); PLATELET 163 x1000/uL (130-400); RED BLOOD CELL COUNT 2.53 mill/uL (4.7-6.1); RED CELL DISTRIBUTION WIDTH 17.2 % (11.6-14.6)
[2017-09-02] MEDS ORDERED: PANTOPRAZOLE 40MG DR TABLET PO SCH (06:30)
[2017-09-02] MEDS: INSULIN LISPRO 100 UNITS/ML SUBCUT SCH ×4 (07:00→21:00)
[2017-09-02] MEDS: BLOOD SUGAR DIAGNOSTIC STRIP TEST SCH ×4 (07:29→20:00)
[2017-09-02 07:44] LABS: BG BASE EXCESS 1.9 mmol/L (-2.0-2.0); BG BILEVEL POS AIRWAY PRESSURE 15/5; BG CARBOXYHEMOGLOBIN 0.2 % (0.5-1.5); BG DEOXYHEMOGLOBIN 2.4 % (0.0-5.0); BG HCO3 ACT 26.3 mmol/L (22.0-26.0); BG METHEMOGLOBIN 0.4 % (0.0-1.5); BG OXYGEN SATURATION 97.6 % (92.0-98.5); BG PCO2 40.2 mmHg (35.0-45.0); BG PH 7.434 (7.350-7.450); BG PO2 100.3 mmHg (75.0-100.0); BG SAMPLE SITE RIGHT RADIAL; BG VENT MODE MASK - BIPAP; BG VENT RATE 16 set
[2017-09-02] MEDS: GUAIFENESIN 600MG ER TABLET PO SCH ×2 (09:00→22:21)
[2017-09-02] MEDS: TAMSULOSIN HCL 0.4MG SR CAPSULE PO SCH (09:00)
[2017-09-02] MEDS: INSULIN GLARGINE UD 100 UNITS/ML SYR SUBCUT SCH ×2 (10:00→22:00)
[2017-09-02 10:18] LABS: PLATELET ESTIMATE NORMAL
[2017-09-02 11:32] LABS: BG BILEVEL POS AIRWAY PRESSURE 15/5; BG CARBOXYHEMOGLOBIN 0.3 % (0.5-1.5); BG DEOXYHEMOGLOBIN 5.6 % (0.0-5.0); BG HCO3 ACT 27.5 mmol/L (22.0-26.0); BG METHEMOGLOBIN 0.3 % (0.0-1.5); BG OXYGEN SATURATION 94.4 % (92.0-98.5); BG OXYHEMOGLOBIN 93.8 % (94.0-97.0); BG PCO2 36.8 mmHg (35.0-45.0); BG PH 7.491 (7.350-7.450); BG PO2 72.2 mmHg (75.0-100.0); BG SAMPLE SITE RIGHT RADIAL; BG TOTAL HEMOGLOBIN 9.2 g/dL (12.0-18.0); BG VENT MODE MASK - BIPAP; BG VENT RATE 14 set
[2017-09-02] MEDS: AMIODARONE HCL 200 MG TABLET PO SCH ×2 (13:09→22:21)
[2017-09-02] MEDS ORDERED: LIDOCAINE HCL/PF 1% 2ML VIAL ONE (15:16)
[2017-09-02] MEDS: CEFEPIME 1,000 MG in DEXTROSE 5% WATER 50 ML IV SCH (16:27)
[2017-09-02] MEDS ORDERED: VANCOMYCIN 1500MG in DEXTROSE 5% WATER 250ML IV NR (16:30)
[2017-09-02] MEDS: ATORVASTATIN CALCIUM 20MG TABLET PO SCH (22:21)
[2017-09-03] VITALS (81 sets, daily range): BP systolic 65–155; BP diastolic 34–75
[2017-09-03] MEDS: ACETYLCYSTEINE 100MG/ML 10% VIAL 4ML INH SCH ×4 (00:09→23:51)
[2017-09-03] MEDS: BLOOD SUGAR DIAGNOSTIC STRIP TEST SCH ×6 (00:19→23:09)
[2017-09-03] MEDS: DILTIAZEM HCL 60MG TABLET PO SCH ×5 (00:19→23:15)
[2017-09-03] MEDS ORDERED: LEVOFLOXACIN 500MG PREMIX 100 ML IV SCH (01:00)
[2017-09-03] MEDS: IPRATROPIUM/ALBUTEROL 0.5-3(2.5)MG/3ML NEB HHN SCH ×6 (04:14→23:50)
[2017-09-03 05:37] LABS: HEMATOCRIT. 24.8 % (42.0-52.0); HEMOGLOBIN. 8.2 g/dL (14.0-18.0); MEAN CORPUSCULAR HEMOGLOBIN 29.7 pg (28.0-32.0); MEAN CORPUSCULAR VOLUME 89.3 fL (80.0-94.0); PLATELET 134 x1000/uL (130-400); RED BLOOD CELL COUNT 2.77 mill/uL (4.7-6.1); RED CELL DISTRIBUTION WIDTH 17.2 % (11.6-14.6)
[2017-09-03 05:46] LABS: PHOSPHORUS 4.4 mg/dL (2.5-4.9)
[2017-09-03] MEDS: NYSTATIN 100,000 UNITS/ML 5ML UDC SSW SCH ×5 (05:51→23:15)
[2017-09-03] MEDS: INSULIN LISPRO 100 UNITS/ML SUBCUT SCH ×4 (05:52→23:18)
[2017-09-03] MEDS: PHENYLEPHRINE 40 MG in DEXT 5% WATER 246 ML IV PRN ×2 (10:01→18:52)
[2017-09-03] MEDS: PROPOFOL 10MG/ML 100ML 100 ML IV PRN ×2 (10:04→18:52)
[2017-09-03] MEDS ORDERED: HEPARIN SODIUM 1,000 UNIT/1ML VIAL IV SCH (10:15)
[2017-09-03 11:19] LABS: PLATELET ESTIMATE NORMAL
[2017-09-03 11:37] LABS: BG BASE EXCESS -4.5 mmol/L (-2.0-2.0); BG FRACTION INSPIRED OXYGEN 100; BG HCO3 ACT 19.8 mmol/L (22.0-26.0); BG PCO2 34.4 mmHg (35.0-45.0); BG PH 7.377 (7.350-7.450); BG PO2 200.6 mmHg (75.0-100.0); BG SAMPLE SITE RIGHT BRACHIAL; BG TIDAL VOLUME(mL) 550 mL; BG VENT MODE VENT - A/C; BG VENT RATE 18 set
[2017-09-03] MEDS: TAMSULOSIN HCL 0.4MG SR CAPSULE PO SCH (12:28)
[2017-09-03] MEDS: AMIODARONE HCL 200 MG TABLET PO SCH ×2 (12:29→20:17)
[2017-09-03] MEDS: GUAIFENESIN 200MG/10ML SUGAR FREE UDC GT SCH ×3 (12:29→23:30)
[2017-09-03] MEDS: PANTOPRAZOLE SODIUM 40 MG/VIAL IV SCH (12:36)
[2017-09-03] MEDS ORDERED: VANCOMYCIN 1 G PREMIX 200 ML IV SCH (13:00)
[2017-09-03] MEDS ORDERED: BISACODYL 10MG SUPP PR SCH (13:15)
[2017-09-03] MEDS: DOCUSATE SODIUM SUGAR FREE 100MG/10ML UDC NG SCH (13:55)
[2017-09-03] MEDS ORDERED: VECURONIUM BROMIDE 10 MG/VIAL IV ONE (14:45)
[2017-09-03] MEDS ORDERED: NORMAL SALINE 0.9% 10 ML SYR ONE (14:45)
[2017-09-03] MEDS ORDERED: SUCCINYLCHOLINE CHLORIDE 200MG/10ML VIAL IV ONE (14:45)
[2017-09-03] MEDS ORDERED: ETOMIDATE 2MG/ML 10ML VIAL IV ONE (14:45)
[2017-09-03] MEDS: CEFEPIME 1,000 MG in DEXTROSE 5% WATER 50 ML IV SCH (16:22)
[2017-09-03] MEDS ORDERED: BISACODYL 10MG SUPP PR PRN (18:00)
[2017-09-03] MEDS: ATORVASTATIN CALCIUM 20MG TABLET PO SCH (20:17)
[2017-09-04] VITALS (105 sets, daily range): BP systolic 71–162; BP diastolic 28–75
[2017-09-04] MEDS: IPRATROPIUM/ALBUTEROL 0.5-3(2.5)MG/3ML NEB HHN SCH ×6 (04:04→23:45)
[2017-09-04] MEDS: PHENYLEPHRINE 40 MG in DEXT 5% WATER 246 ML IV PRN ×2 (04:43→13:15)
[2017-09-04] MEDS: DILTIAZEM HCL 60MG TABLET PO SCH ×3 (05:29→17:13)
[2017-09-04] MEDS: DOPAMINE 400MG PREMIX 250 ML IV PRN ×5 (05:29→19:41)
[2017-09-04] MEDS: BLOOD SUGAR DIAGNOSTIC STRIP TEST SCH ×3 (05:30→17:28)
[2017-09-04] MEDS: INSULIN LISPRO 100 UNITS/ML SUBCUT SCH ×3 (05:35→17:33)
[2017-09-04] MEDS: GUAIFENESIN 200MG/10ML SUGAR FREE UDC GT SCH ×3 (05:36→17:32)
[2017-09-04] MEDS: NYSTATIN 100,000 UNITS/ML 5ML UDC SSW SCH ×3 (05:36→17:32)
[2017-09-04 05:53] LABS: MEAN CORPUSCULAR HEMOGLOBIN 30.4 pg (28.0-32.0); MEAN CORPUSCULAR VOLUME 89.6 fL (80.0-94.0); MEAN PLATELET VOLUME 7.6 fl (7.4-10.4); PLATELET 116 x1000/uL (130-400); RED BLOOD CELL COUNT 2.26 mill/uL (4.7-6.1); RED CELL DISTRIBUTION WIDTH 17.2 % (11.6-14.6)
[2017-09-04 06:24] LABS: HEMOGLOBIN. 6.9 g/dL (14.0-18.0)
[2017-09-04 06:25] LABS: HEMATOCRIT. 20.3 % (42.0-52.0)
[2017-09-04 07:03] LABS: BG BASE EXCESS -9.8 mmol/L (-2.0-2.0); BG CARBOXYHEMOGLOBIN 0.3 % (0.5-1.5); BG DEOXYHEMOGLOBIN 11.7 % (0.0-5.0); BG FRACTION INSPIRED OXYGEN 100; BG HCO3 ACT 16.4 mmol/L (22.0-26.0); BG METHEMOGLOBIN 0.4 % (0.0-1.5); BG OXYGEN SATURATION 88.2 % (92.0-98.5); BG OXYHEMOGLOBIN 87.6 % (94.0-97.0); BG PCO2 36.7 mmHg (35.0-45.0); BG PH 7.267 (7.350-7.450); BG PO2 61.8 mmHg (75.0-100.0); BG SAMPLE SITE RIGHT BRACHIAL; BG TIDAL VOLUME(mL) 550 mL; BG TOTAL HEMOGLOBIN 8.1 g/dL (12.0-18.0); BG VENT MODE VENT - A/C; BG VENT RATE 18 set
[2017-09-04] MEDS ORDERED: SODIUM BICARBONATE 8.4% 1 MEQ/ML 50ML SYR IV SCH (07:45)
[2017-09-04] MEDS: ACETYLCYSTEINE 100MG/ML 10% VIAL 4ML INH SCH ×3 (08:00→23:45)
[2017-09-04] MEDS: AMIODARONE HCL 200 MG TABLET PO SCH ×2 (08:14→21:03)
[2017-09-04] MEDS: PANTOPRAZOLE SODIUM 40 MG/VIAL IV SCH (08:14)
[2017-09-04] MEDS: DOCUSATE SODIUM SUGAR FREE 100MG/10ML UDC NG SCH (08:14)
[2017-09-04] MEDS: TAMSULOSIN HCL 0.4MG SR CAPSULE PO SCH (09:00)
[2017-09-04] MEDS: MORPHINE SULFATE 4 MG/ML CPJ (NOT FOR IM USE) IV PRN (11:32)
[2017-09-04] MEDS: ACETAMINOPHEN 650MG/20.3ML UDC NG PRN (11:32)
[2017-09-04 12:23] LABS: PLATELET ESTIMATE SLIGHTLY DECREASED
[2017-09-04] MEDS ORDERED: PROPOFOL 10MG/ML 100ML 100 ML IV PRN (14:00)
[2017-09-04] MEDS: PROPOFOL 10MG/ML 100ML 100 ML IV PRN ×2 (14:17→21:04)
[2017-09-04] MEDS: CEFEPIME 1,000 MG in DEXTROSE 5% WATER 50 ML IV SCH (17:12)
[2017-09-04 20:29] LABS: HEMATOCRIT. 29.5 % (42.0-52.0); HEMOGLOBIN. 9.7 g/dL (14.0-18.0); MEAN CORPUSCULAR HEMOGLOBIN 29.1 pg (28.0-32.0); MEAN CORPUSCULAR VOLUME 88.5 fL (80.0-94.0); MEAN PLATELET VOLUME 7.6 fl (7.4-10.4); PLATELET 90 x1000/uL (130-400); RED BLOOD CELL COUNT 3.33 mill/uL (4.7-6.1); RED CELL DISTRIBUTION WIDTH 15.6 % (11.6-14.6)
[2017-09-04 20:35] LABS: PLATELET ESTIMATE DECREASED
[2017-09-04] MEDS: ATORVASTATIN CALCIUM 20MG TABLET PO SCH (21:03)
[2017-09-04 21:31] LABS: INR 1.1; PROTHROMBIN TIME 11.7 sec (9.4-11.6)
[2017-09-05] VITALS (99 sets, daily range): BP systolic 63–155; BP diastolic 30–79
[2017-09-05] MEDS: BLOOD SUGAR DIAGNOSTIC STRIP TEST SCH ×5 (00:10→23:41)
[2017-09-05] MEDS: GUAIFENESIN 200MG/10ML SUGAR FREE UDC GT SCH ×5 (00:33→23:40)
[2017-09-05] MEDS: NYSTATIN 100,000 UNITS/ML 5ML UDC SSW SCH ×5 (00:33→23:30)
[2017-09-05] MEDS: DOPAMINE 400MG PREMIX 250 ML IV PRN ×2 (00:34→08:35)
[2017-09-05] MEDS: INSULIN LISPRO 100 UNITS/ML SUBCUT SCH ×5 (00:35→23:41)
[2017-09-05] MEDS: PROPOFOL 10MG/ML 100ML 100 ML IV PRN ×2 (01:38→09:43)
[2017-09-05] MEDS: IPRATROPIUM/ALBUTEROL 0.5-3(2.5)MG/3ML NEB HHN SCH ×5 (03:39→20:39)
[2017-09-05] MEDS: DILTIAZEM HCL 60MG TABLET PO SCH ×2 (05:20)
[2017-09-05] MEDS: ACETYLCYSTEINE 100MG/ML 10% VIAL 4ML INH SCH ×2 (08:06→16:35)
[2017-09-05] MEDS: DOCUSATE SODIUM SUGAR FREE 100MG/10ML UDC NG SCH (08:33)
[2017-09-05] MEDS: TAMSULOSIN HCL 0.4MG SR CAPSULE PO SCH (08:33)
[2017-09-05] MEDS: AMIODARONE HCL 200 MG TABLET PO SCH (08:33)
[2017-09-05] MEDS: ACETAMINOPHEN 650MG/20.3ML UDC NG PRN (08:33)
[2017-09-05] MEDS: PANTOPRAZOLE SODIUM 40 MG/VIAL IV SCH (08:33)
[2017-09-05 09:14] LABS: HEMATOCRIT. 26.1 % (42.0-52.0); MEAN CORPUSCULAR HEMOGLOBIN 29.9 pg (28.0-32.0); MEAN CORPUSCULAR VOLUME 87.3 fL (80.0-94.0); MEAN PLATELET VOLUME 7.2 fl (7.4-10.4); PLATELET 60 x1000/uL (130-400); RED CELL DISTRIBUTION WIDTH 16.2 % (11.6-14.6)
[2017-09-05] MEDS ORDERED: NOREPINEPHRINE 16 MG in DEXT 5% WATER 234 ML IV PRN (09:45)
[2017-09-05] MEDS: PHENYLEPHRINE 40 MG in DEXT 5% WATER 246 ML IV PRN (10:35)
[2017-09-05 10:52] LABS: BG BASE EXCESS -2.4 mmol/L (-2.0-2.0); BG CARBOXYHEMOGLOBIN 0.3 % (0.5-1.5); BG DEOXYHEMOGLOBIN 16.5 % (0.0-5.0); BG FRACTION INSPIRED OXYGEN 100; BG METHEMOGLOBIN 0.4 % (0.0-1.5); BG OXYHEMOGLOBIN 82.8 % (94.0-97.0); BG PCO2 49.3 mmHg (35.0-45.0); BG PH 7.306 (7.350-7.450); BG PO2 50.6 mmHg (75.0-100.0); BG SAMPLE SITE RIGHT RADIAL; BG TIDAL VOLUME(mL) 550 mL; BG TOTAL HEMOGLOBIN 10.1 g/dL (12.0-18.0); BG VENT MODE VENT - A/C; BG VENT RATE 20 set
[2017-09-05 11:06] LABS: PLATELET ESTIMATE DECREASED
[2017-09-05 11:46] LABS: HEMOGLOBIN. 9.2 g/dL (14.0-18.0); MEAN CORPUSCULAR VOLUME 88.5 fL (80.0-94.0); PLATELET 70 x1000/uL (130-400); RED BLOOD CELL COUNT 3.17 mill/uL (4.7-6.1); RED CELL DISTRIBUTION WIDTH 16.7 % (11.6-14.6)
[2017-09-05 11:48] LABS: INR 1.2; PROTHROMBIN TIME 12.1 sec (9.4-11.6)
[2017-09-05 12:20] LABS: PLATELET ESTIMATE DECREASED
[2017-09-05 12:27] LABS: PHOSPHORUS 5.6 mg/dL (2.5-4.9)
[2017-09-05] MEDS: DOPAMINE 800MG PREMIX 250 ML IV PRN ×2 (12:45→18:59)
[2017-09-05 12:48] LABS: CHLORIDE 90 mEq/L (98-107)
[2017-09-05] MEDS ORDERED: METHYLPREDNISOLONE SOD SUCC 125 MG/2 ML VIAL IV SCH (14:00)
[2017-09-05] MEDS: CEFEPIME 1,000 MG in DEXTROSE 5% WATER 50 ML IV SCH (17:35)
[2017-09-05] MEDS: ATORVASTATIN CALCIUM 20MG TABLET PO SCH (22:48)
[2017-09-05] MEDS: MORPHINE SULFATE 4 MG/ML CPJ (NOT FOR IM USE) IV PRN (23:30)
[2017-09-06] VITALS (58 sets, daily range): BP systolic 88–148; BP diastolic 32–91
[2017-09-06] MEDS: IPRATROPIUM/ALBUTEROL 0.5-3(2.5)MG/3ML NEB HHN SCH ×4 (00:11→12:33)
[2017-09-06] MEDS: DOPAMINE 800MG PREMIX 250 ML IV PRN ×3 (00:17→13:08)
[2017-09-06] MEDS: ACETYLCYSTEINE 100MG/ML 10% VIAL 4ML INH SCH ×2 (00:26→08:34)
[2017-09-06] MEDS: ACETAMINOPHEN 650MG/20.3ML UDC NG PRN (01:56)
[2017-09-06] MEDS: MORPHINE SULFATE 4 MG/ML CPJ (NOT FOR IM USE) IV PRN (04:29)
[2017-09-06] MEDS: BLOOD SUGAR DIAGNOSTIC STRIP TEST SCH ×2 (06:00→11:50)
[2017-09-06] MEDS: NYSTATIN 100,000 UNITS/ML 5ML UDC SSW SCH ×2 (06:00→12:00)
[2017-09-06] MEDS: INSULIN LISPRO 100 UNITS/ML SUBCUT SCH ×2 (06:00→11:50)
[2017-09-06 06:01] LABS: HEMATOCRIT. 25.6 % (42.0-52.0); HEMOGLOBIN. 8.8 g/dL (14.0-18.0); MEAN CORPUSCULAR HEMOGLOBIN 29.9 pg (28.0-32.0); MEAN CORPUSCULAR VOLUME 86.5 fL (80.0-94.0); RED BLOOD CELL COUNT 2.96 mill/uL (4.7-6.1); RED CELL DISTRIBUTION WIDTH 16.2 % (11.6-14.6)
[2017-09-06] MEDS: GUAIFENESIN 200MG/10ML SUGAR FREE UDC GT SCH ×2 (06:30→12:30)
[2017-09-06 08:05] LABS: BG CARBOXYHEMOGLOBIN 0.3 % (0.5-1.5); BG FRACTION INSPIRED OXYGEN 100; BG SAMPLE SITE RIGHT RADIAL; BG TIDAL VOLUME(mL) 500 mL; BG VENT MODE VENT - A/C; BG VENT RATE 22 set
[2017-09-06] MEDS: PANTOPRAZOLE SODIUM 40 MG/VIAL IV SCH (08:09)
[2017-09-06] MEDS: TAMSULOSIN HCL 0.4MG SR CAPSULE PO SCH (08:13)
[2017-09-06] MEDS: DOCUSATE SODIUM SUGAR FREE 100MG/10ML UDC NG SCH (08:13)
[2017-09-06 08:16] LABS: BG PCO2 45.5 mmHg (35.0-45.0); BG PH 7.243 (7.350-7.450)
[2017-09-06 08:17] LABS: BG HCO3 ACT 19.2 mmol/L (22.0-26.0)
[2017-09-06 08:18] LABS: BG BASE EXCESS -7.7 mmol/L (-2.0-2.0); BG TOTAL HEMOGLOBIN 9.1 g/dL (12.0-18.0)
[2017-09-06 08:19] LABS: BG OXYGEN SATURATION 98.1 % (92.0-98.5)
[2017-09-06 08:20] LABS: BG METHEMOGLOBIN 0.2 % (0.0-1.5); BG OXYHEMOGLOBIN 98.1 % (94.0-97.0)
[2017-09-06 08:21] LABS: BG DEOXYHEMOGLOBIN 1.4 % (0.0-5.0)
[2017-09-06] MEDS ORDERED: SODIUM BICARBONATE 8.4% 1 MEQ/ML 50ML SYR IV NR (08:45)
[2017-09-06 09:48] LABS: NUCLEATED RED BLOOD CELLS 1 /100 WBC
[2017-09-06 09:52] LABS: PLATELET ESTIMATE MARKEDLY DECREASED
[2017-09-06 09:55] LABS: MEAN PLATELET VOLUME 8.4 fl (7.4-10.4); PLATELET 41 x1000/uL (130-400)
[2017-09-06] MEDS ORDERED: SODIUM POLYSTYRENE SULFONATE 15 G/60 ML BOT NG NR (12:00)
[2017-09-06 12:33] LABS: T4 FREE 0.76 ng/dL (0.76-1.46)
[2017-09-06] MEDS ORDERED: EPINEPHRINE 0.1MG/ML (1:10,000) 10ML SYR ONE ×2 (13:00→13:30)
[2017-09-06] MEDS ORDERED: DEXTROSE 50% WATER 50ML SYRINGE IV ONE (13:00)
[2017-09-06] MEDS ORDERED: ATROPINE SULFATE 1MG/10ML SYR ONE (13:00)
[2017-09-06] MEDS ORDERED: CALCIUM CHLORIDE 1GM/10ML SYR IV ONE (13:00)
[2017-09-06] MEDS ORDERED: SODIUM BICARBONATE 7.5% 0.9 MEQ/ML 50ML SYR IV ONE (13:00)
== END 2017-09-06 13:30 | disposition expired | DRG 871 ==
LOC: 5EST 13:50 → MICUNO 16:32
PROVIDERS: ADMIT Hospitalist; ATTEND Hospitalist
PROC: 5A1D70Z Performance of Urinary Filtration, Intermittent, Less than 6 Hours Per Day (ICD-10-PCS; 2017-09-01)
PROC: 5A09457 Assistance with Respiratory Ventilation, 24-96 Consecutive Hours, Continuous Positive Airway Pressure (ICD-10-PCS; principal; 2017-09-02)
PROC: 4A00X4Z Measurement of Central Nervous Electrical Activity, External Approach (ICD-10-PCS; 2017-09-02)
PROC: 5A1945Z Respiratory Ventilation, 24-96 Consecutive Hours (ICD-10-PCS; 2017-09-03)
PROC: 0BH17EZ Insertion of Endotracheal Airway into Trachea, Via Natural or Artificial Opening (ICD-10-PCS; 2017-09-03)
PROC: 30233N1 Transfusion of Nonautologous Red Blood Cells into Peripheral Vein, Percutaneous Approach (ICD-10-PCS; 2017-09-04)
PROC: 5A1D70Z Performance of Urinary Filtration, Intermittent, Less than 6 Hours Per Day (ICD-10-PCS; 2017-09-05)
PROC: 5A12012 Performance of Cardiac Output, Single, Manual (ICD-10-PCS; 2017-09-06)
DX: A41.9 Sepsis, unspecified organism (principal); I21.4 Non-ST elevation (NSTEMI) myocardial infarction; I63.9 Cerebral infarction, unspecified; J96.01 Acute respiratory failure with hypoxia; R65.21 Severe sepsis with septic shock; J18.9 Pneumonia, unspecified organism; G93.40 Encephalopathy, unspecified; D69.6 Thrombocytopenia, unspecified; N18.6 End stage renal disease; I50.33 Acute on chronic diastolic (congestive) heart failure; I13.2 Hypertensive heart and chronic kidney disease with heart failure and with stage 5 chronic kidney disease, or end stage renal disease; N17.9 Acute kidney failure, unspecified; B37.0 Candidal stomatitis; N39.0 Urinary tract infection, site not specified; E87.1 Hypo-osmolality and hyponatremia; K56.7 Ileus, unspecified; K92.2 Gastrointestinal hemorrhage, unspecified; D64.9 Anemia, unspecified; E11.22 Type 2 diabetes mellitus with diabetic chronic kidney disease; E11.649 Type 2 diabetes mellitus with hypoglycemia without coma; I25.10 Atherosclerotic heart disease of native coronary artery without angina pectoris; E05.90 Thyrotoxicosis, unspecified without thyrotoxic crisis or storm; E87.5 Hyperkalemia; I48.0 Paroxysmal atrial fibrillation; E88.2 Lipomatosis, not elsewhere classified; M47.9 Spondylosis, unspecified; N40.0 Benign prostatic hyperplasia without lower urinary tract symptoms; R62.7 Adult failure to thrive; Z78.1 Physical restraint status; Z87.891 Personal history of nicotine dependence; Z99.2 Dependence on renal dialysis
CPT/HCPCS: 31500; 36415; 36600; 70450; 70551; 71045; 71250; 74018; 80048; 80053; 80076; 80202; 82375; 82805; 82962; 83690; 83735; 84100; 84439; 84443; 84478; 84481; 84484; 85007; 85025; 85027; 85384; 85610; 86850; 86900; 86920; 87040; 87070; 93005; 93306; 94002; 94003; 94640; 94660; A4216; A6261; C9113; J0330; J0461; J0692; J1265; J1644; J1815; J1956; J2270; J2370; J2704; J3370; J3490; J7030; J7050; J7060; J7608; J7620; P9016